=== PATIENT | female | born 1985 | race Caucasian/White ===

== ENCOUNTER 2017-03-07 10:20 | Emergency (ER) | payer BC ==
--- NOTE | 2017-03-07 12:28 | UC ---
Abdominal Pain Female HPI - History of Current Complaint Chief Complaint: UCGI Stated Complaint: ABD PAIN DIARRHEA WT LOSS Time Seen by Provider: 03/07/17 12:27 Hx Last Menstrual Period: 02/04/17 Allergies/Adverse Reactions: Allergies Allergy/AdvReac Type Severity Reaction Status Date / Time No Known Allergies Allergy Verified 03/07/17 11:23 Home Medications: Home Medications Citalopram TAB* [CeleXA TAB*] 30 mg PO DAILY 03/07/17 [History Confirmed ] Multiple Vitamin [Multi Vitamin] 1 tab PO DAILY 03/07/17 [History Confirmed 06/16] PMH/Surg Hx/FS Hx/Imm Hx - Surgical History Surgical History: None - Social History Alcohol Use: Daily Alcohol Amount: 2-3 beers Substance Use Type: Marijuana Substance Use Comment - Amount & Last Used: several times a day Smoking Status (MU): Heavy Every Day Tobacco Smoker Type: Cigarettes Amount Used/How Often: 1 ppd Length of Time of Smoking/Using Tobacco: started at age 16 Have You Smoked in the Last Year: Yes Physical Exam Vital Signs: Initial Vital Signs Temp 98.9 F 03/07/17 11:15 Pulse 88 03/07/17 11:15 Resp 14 03/07/17 11:15 BP 167/103 03/07/17 11:15 Pulse Ox 97 03/07/17 11:15 Discharge - Discharge Plan Additional Instructions: Your blood pressure is elevated. Please contact your primary care provider within 1 day -4 weeks for further evaluation.
[2017-03-07 14:02] VITALS: BP 136/85
--- NOTE | 2017-03-07 14:20 | UC ---
Abdominal Pain Female HPI - HPI Summary HPI Summary: PT C/O 2 MONTHS OF WATERY DIARRHEA AND ABDOMINAL CRAMPING. WORSE IN THE MORNING AND AFTER EATING. HAS 4-5 EPISODES OF WATERY DIARRHEA DAILY FOR AT LEAST THE PAST MONTH. HAS HAD 8 LB UNINTENTIONAL WEIGHT LOSS. NO FEVERS. HAS MILD NAUSEA. SAW HER PCP ABOUT A MONTH AGO AND RESTARTED CITALOPRAM IN CASE SX WERE RELATED TO ANXIETY/DEPRESSION. SX DID NOT IMPROVE. SISTER HAS CROHNS. - History of Current Complaint Chief Complaint: UCGI Stated Complaint: ABD PAIN DIARRHEA WT LOSS Time Seen by Provider: 03/07/17 12:27 Hx Obtained From: Patient Hx Last Menstrual Period: 02/04/17 Onset/Duration: Gradual Onset, Lasting Weeks, Still Present Timing: Constant Severity Initially: Moderate Severity Currently: Moderate Pain Intensity: 3 Pain Scale Used: 0-10 Numeric Location: Diffuse Radiates: No Character: Cramping Aggravating Factor(s): Food Alleviating Factor(s): Nothing Associated Signs and Symptoms: Positive: Nausea, Diarrhea, Other: - WEIGHT LOSS Allergies/Adverse Reactions: Allergies Allergy/AdvReac Type Severity Reaction Status Date / Time No Known Allergies Allergy Verified 03/07/17 11:23 Home Medications: Home Medications Citalopram TAB* [Celexa TAB*] 30 mg PO DAILY 03/07/17 [History Confirmed ] Multiple Vitamin [Multi Vitamin] 1 tab PO DAILY 03/07/17 [History Confirmed 06/16] PMH/Surg Hx/FS Hx/Imm Hx Psychological History Of: Reports: Anxiety, Depression - Surgical History Surgical History: None - Family History Family History: CROHNS - SISTER - Social History Alcohol Use: Daily Alcohol Amount: 2-3 beers Substance Use Type: Marijuana Substance Use Comment - Amount & Last Used: several times a day Smoking Status (MU): Heavy Every Day Tobacco Smoker Type: Cigarettes Amount Used/How Often: 1 ppd Length of Time of Smoking/Using Tobacco: started at age 16 Have You Smoked in the Last Year: Yes Review of Systems Constitutional: Negative Respiratory: Negative Cardiovascular: Negative Gastrointestinal: Abdominal Pain, Diarrhea, Other - NAUSEA All Other Systems Reviewed And Are Negative: Yes Physical Exam Triage Information Reviewed: Yes Appearance: Well-Appearing, No Pain Distress, Well-Nourished Vital Signs: Initial Vital Signs Temp 98.9 F 03/07/17 11:15 Pulse 88 03/07/17 11:15 Resp 14 03/07/17 11:15 BP 167/103 03/07/17 11:15 Pulse Ox 97 03/07/17 11:15 Vital Signs Reviewed: Yes Eyes: Positive: Conjunctiva Clear ENT: Positive: Hearing grossly normal Neck: Positive: Supple Respiratory Exam: Normal Cardiovascular Exam: Normal Abdomen Description: Positive: Nontender, Soft. Negative: CVA Tenderness (R), CVA Tenderness (L), Distended, Guarding Bowel Sounds: Positive: Hyperactive Musculoskeletal: Positive: No Edema Neurological: Positive: Alert Psychological: Positive: Age Appropriate Behavior Skin: Negative: rashes Abd Pain Female Course/Dx - Differential Dx/Diagnosis Provider Diagnoses: ABDOMINAL PAIN/DIARRHEA/WEIGHT LOSS Discharge - Discharge Plan Condition: Stable Disposition: HOME Prescriptions: Ondansetron ODT TAB* [Zofran Odt TAB*] 4 mg PO Q6H PRN #20 tab.odt PRN Reason: Nausea/Vomiting Patient Education Materials: Irritable Bowel Syndrome (ED), Acute Diarrhea (ED) Forms: *Work Release Referrals: Rafy Cooper MD [Primary Care Provider] - If Needed Palomo Vo MD [Medical Doctor] - (OFFICE WILL CALL YOU TO SCHEDULE AN APPT) Additional Instructions: FOLLOW-UP WITH GI FOR FURTHER EVALUATION OF YOUR SYMPTOMS. YOUR INFORMATION HAS BEEN FAXED TO DR. VO' OFFICE AND SOMEONE SHOULD BE CALLING YOU TO SCHEDULE AN APPT. Your blood pressure is elevated. Please contact your primary care provider within 1 day -4 weeks for further evaluation.
== END 2017-03-07 14:30 | disposition home or self-care (01) ==
LOC: UCEAST 10:20
DX: R19.7 Diarrhea, unspecified (principal); R10.9 Unspecified abdominal pain; R63.4 Abnormal weight loss; F41.8 Other specified anxiety disorders
CPT/HCPCS: 99212; G0463

== ENCOUNTER 2017-12-07 03:16 | Emergency (ER) | payer BC ==
[2017-12-07] MEDS ORDERED: NS 0.9% 1000 ML* 1,000 ML IV ONE (04:12)
[2017-12-07] MEDS ORDERED: Ketorolac INJ* 30 MG/ML 1 ML VIAL IV PUSH ONE (04:26)
[2017-12-07 05:00] LABS: Hematocrit 40 % (35-47); Hemoglobin 13.5 g/dl (12.0-16.0); Mean Corpuscular HGB Conc 34 g/dl (31-36); Mean Corpuscular Hemoglobin 32 pg (27-31); Mean Corpuscular Volume 92 fL (80-97); Mean Platelet Volume 8 um3 (7.4-10.4); Platelet Count 375 10^3/ul (150-450); Red Blood Count 4.28 10^6/ul (4.0-5.4); Red Cell Distribution Width 12 % (10.5-15); White Blood Count 21.5 10^3/ul (3.5-10.8)
[2017-12-07 05:02] LABS: ABS Basophils 0.2 10^3/ul (0-0.2); ABS Eosinophils 0.2 10^3/ul (0-0.6); ABS Lymphocytes 0.9 10^3/ul (1.0-4.8); ABS Monocytes 1.8 10^3/ul (0-0.8); ABS Neutrophils 18.4 10^3/ul (1.5-7.7); ABS Nucleated RBC 0 10^3/ul; Eosinophil % 0.8 % (0-6); Lymphocyte % 4.1 % (25-47); Nucleated Red Blood Cells % 0
[2017-12-07 05:11] LABS: EGFR Non-African American 118.9 (>60)
--- NOTE | 2017-12-07 06:42 | ED ---
Patel Oliver Abhishek, scribed for Shefali Wooten MD on 12/07/17 at 0437 . Complex/Multi-Sys Presentation - HPI Summary HPI Summary: This patient is a 32 year old F [place] [facility] [place] and father with a c/o of lower abd pain since . Pt reports vomiting started in Friday, but generalized weakness since . Pt reports loss of 10 pounds since onset of symptoms. The patient rates the pain 7/10 in severity. Symptoms aggravated by nothing. Symptoms alleviated by nothing. Patient reports weakness, diarrhea and BERMEO. Patient denies double vision, blurry vision, neck pain, chest pain, SOB, burning, hematuria, bruises, rashes, SI, HI , anxiety, depression. Pertinent PMHx includes Crohns disease. - History Of Current Complaint Chief Complaint: EDAbdPain Time Seen by Provider: 12/07/17 03:41 Hx Obtained From: Patient, Family/Work Order Detailer Onset/Duration: Gradual Onset, Lasting Weeks - since , Still Present , Worse Since - This Friday Timing: Constant Location: Pain At: - lower abd Aggravating Factor(s): nothing Alleviating Factor(s): nothing Associated Signs And Symptoms: Positive: Weakness, Other - BERMEO. Negative blurry vision, double vision, neck pain, burning sensation when urinating, hematuria, brusies, rahses, SI, HI, anxiety, and depression.. Negative: SOB, Chest Pain - Allergies/Home Medications Allergies/Adverse Reactions: Allergies Allergy/AdvReac Type Severity Reaction Status Date / Time No Known Allergies Allergy Verified 12/07/17 03:56 Home Medications: Home Medications Flagyl 500 MG TAB 500 mg PO TID 12/07/17 [History Confirmed 12/07/17] Hyoscyamine TAB* 0.125 mg PO Q4HR PRN 12/07/17 [History Confirmed 12/07/17] LORazepam TAB(*) 0.5 mg PO Q4HR PRN 12/07/17 [History Confirmed 12/07/17] PMH/Surg Hx/FS Hx/Imm Hx Endocrine/Hematology History: Denies: Hx Diabetes Cardiovascular History: Denies: Hx Hypertension History: Denies: Hx Renal Disease Psychiatric History: Reports: Hx Anxiety, Hx Depression - Immunization History Date of Influenza Vaccine: has not yet received Infectious Disease History: No Infectious Disease History: Denies: Traveled Outside the [place] in Last 30 Days - Family History Known Family History: Positive: Other - Negative colon Cancer. Family History: CROHNS - SISTER - Social History Alcohol Use: None Alcohol Amount: 2-3 beers Hx Substance Use: Yes Substance Use Type: Reports: Marijuana Substance Use Comment - Amount & Last Used: several times a day Smoking Status (MU): Heavy Every Day Tobacco Smoker Type: Cigarettes Amount Used/How Often: 1 ppd Length of Time of Smoking/Using Tobacco: started at age 16 Have You Smoked in the Last Year: Yes Review of Systems Positive: Fever Eyes: Other - Negative double vision Negative: Blurred Vision ENT: Negative Negative: Chest Pain Negative: Shortness Of Breath Gastrointestinal: Negative Negative: burning, hematuria Musculoskeletal: Other - Negative neck pain Negative: Rash, Bruising Positive: Headache, Weakness Psychological: Other - Negative SI, HI Negative: Anxious, Depressed All Other Systems Reviewed And Are Negative: No Physical Exam - Summary Physical Exam Summary: Appearance: Alert, conversive, nontoxic appearing, Thin frail Skin: Warm, dry, no mottling, no rashes, no contusions HEENT: EOMI, PERRL, Dry mucosa membranes Neck: No masses on the neck, supple Respiratory: Clear to auscultation, breath sounds present, no rales, no rhonchi , no wheezes Cardiovascular: RRR, pulses are symmetrical in both lower and upper extremities Abdomen:Mild diffuse abd pain Bowel Sounds: Present Musculoskeletal: No CVA tenderness, no obvious deformity, moving all extremities in a grossly normal manner Neurological: A&Ox3, CN II-XII Intact, moving all extremities symmetrically Psychiatric: Normal affect and mood Triage Information Reviewed: Yes Vital Signs On Initial Exam: Initial Vitals Temp Pulse Resp BP Pulse Ox 98 F 104 18 122/105 99 12/07/17 03:22 12/07/17 03:22 12/07/17 03:22 12/07/17 03:22 12/07/17 03:22 Vital Signs Reviewed: Yes Diagnostics - Vital Signs Vital Signs Temp Pulse Resp BP Pulse Ox 12/07/17 04:01 69 96 12/07/17 04:00 117/69 12/07/17 03:22 98 F 104 18 122/105 99 - Laboratory Result Diagrams: 12/07/17 04:40 12/07/17 04:40 Lab Statement: Any lab studies that have been ordered have been reviewed, and results considered in the medical decision making process. Complex Multi-Symp Course/Dx Course Of Treatment: This patient is a 32 year old F presenting to [facility] accompanied by mother and father with a c/o of lower abd pain since thanks. Pt reports vomiting started in Friday, but generalized weakness since . Pt reports loss of 10 pounds since onset of symptoms. Dx will be colitis. the pt will be signed out Dr. Bustos pending disposition and repeat labs. - Diagnoses Provider Diagnoses: Colitis Discharge - Discharge Plan Condition: Stable Disposition: OTHER Discharge Disposition Comment: Pt will be signed out to Dr. Bustos pending disposition and repeat labs Referrals: Vivi Jones NP [Primary Care Provider] - The documentation as recorded by the Patel forde Abhishek accurately reflects the service I personally performed and the decisions made by , Shefali Wooten MD.
[2017-12-07] MEDS ORDERED: Iohexol 300* (CONTRAST) 10 ML SDV IV ONE (06:45)
[2017-12-07] MEDS ORDERED: Ondansetron TAB* 4 MG PO ONE (08:37)
[2017-12-07] MEDS ORDERED: Ciprofloxacin TAB* 500 MG PO ONE (08:38)
--- NOTE | 2017-12-07 08:41 | ED ---
Mitchell Oliver Natalie, scribed for Dom Bustos MD on 12/07/17 at 0835 . Progress - Progress Note Progress Note: pt feels better here after ED course, already started on flagyl from pmd, I added cipro to regimen and recommended fu with GI physician. CT shows evidence of minimally improved colitis. WBC elevated, Vitals stable, appears well and tolerating PO. Pt and family agree to and understnad dc instructions. - EKG/XRAY/CT CT: colitis minimally improved. no abscess or masses or obstructions. Re-Evaluation - Re-Evaluation First Eval Re-Evaluation Time: 08:32 Course/Dx - Course Course Of Treatment: This patient is a 32 year old F presenting to [facility] accompanied by mother and father with a c/o of lower abd pain since thanks. Pt reports vomiting started in Friday, but generalized weakness since . Pt reports loss of 10 pounds since onset of symptoms. Dx will be colitis. the pt will be signed out Dr. Bustos pending disposition and repeat labs. - Diagnoses Provider Diagnoses: Colitis The documentation as recorded by the Mitchell forde Natalie accurately reflects the service I personally performed and the decisions made by me, Dom Bustos MD.
--- NOTE | 2017-12-07 08:44 | RAD ---
INDICATION: Abdominal pain and history of colitis. COMPARISON: Comparison is made with a prior CT of the abdomen and pelvis from December 08, 2017. TECHNIQUE: A CT scan of the abdomen and pelvis was performed with intravenous and without oral contrast following intravenous injection of 65 ml of Omnipaque 300 nonionic contrast. Contiguous axial sections were obtained from the lung bases through the symphysis pubis. Images were reconstructed in the coronal and sagittal planes. FINDINGS: The lung bases are clear. No pleural effusion is present. The liver and spleen are within normal limits in size without significant focal abnormality. No calcified gallstones are seen. The pancreas appears to be within normal limits in size. The kidneys and adrenal glands are normal in size. No hydronephrosis is seen. No significant focal renal abnormality is seen. The aorta is normal in caliber and demonstrates homogeneous contrast opacification. No significant enlarged retroperitoneal lymph nodes are seen. The stomach, small and large bowel appear nondistended. The appendix is not visualized. There is diffuse circumferential thickening of the wall of the colon from the cecum to the mid sigmoid colon. The degree of wall thickening has improved slightly from the prior study. The uterus is anteverted and normal in size. There is a small amount of free intraperitoneal fluid in the cul-de-sac. No free intraperitoneal air is seen. No abscess is seen. No significant focal osseous abnormality is seen. IMPRESSION: 1. DIFFUSE THICKENING OF THE COLON CONSISTENT WITH COLITIS WITH SLIGHT IMPROVEMENT FROM THE PRIOR STUDY. 2. SMALL AMOUNT OF FREE INTRAPERITONEAL FLUID, NO ABSCESS IS SEEN.
[2017-12-07 09:33] VITALS: BP 115/64
== END 2017-12-07 09:27 | disposition home or self-care (01) ==
LOC: ED 03:16
DX: K52.9 Noninfective gastroenteritis and colitis, unspecified (principal); R10.30 Lower abdominal pain, unspecified; R53.1 Weakness; R50.9 Fever, unspecified; F17.210 Nicotine dependence, cigarettes, uncomplicated; R51 Headache
CPT/HCPCS: 36415; 74177; 80053; 83605; 83735; 84443; 85025; 87040; 96361; 96374; 96375; 99283; A9270-GY; J1885; Q9967

== ENCOUNTER 2018-11-01 17:03 | Inpatient (IN) | payer BC, MEDICAID ==
[2018-11-01] MEDS ORDERED: NS 0.9% 1000 ML* 1,000 ML IV ONE ×2 (18:33→19:08)
[2018-11-01] MEDS ORDERED: Ondansetron INJ* 2 MG/ML VIAL IV ONE (18:33)
[2018-11-01] MEDS ORDERED: Morphine VIAL* 10 MG/ML 1 ML VIAL IV ONE ×2 (19:08→21:02)
[2018-11-01 19:18] LABS: Hematocrit 39 % (35-47); Mean Corpuscular HGB Conc 33 g/dl (31-36); Mean Corpuscular Hemoglobin 31 pg (27-31); Mean Corpuscular Volume 92 fL (80-97); Mean Platelet Volume 7.6 fL (7.4-10.4); Platelet Count 345 10^3/ul (150-450); Red Blood Count 4.21 10^6/ul (4.00-5.40); Red Cell Distribution Width 12 % (10.5-15); White Blood Count 24.3 10^3/ul (3.5-10.8)
[2018-11-01] MEDS ORDERED: Morphine VIAL* 4 MG/ML VIAL (1 ml vial) ONE (19:23)
[2018-11-01] MEDS ORDERED: Dicyclomine CAP* 10 MG PO ONE (19:32)
[2018-11-01 19:36] LABS: EGFR Non-African American 111.6 (>60)
[2018-11-01 20:47] LABS: ABS Basophils 0 10^3/ul (0-0.2); ABS Eosinophils 0 10^3/ul (0-0.6); ABS Lymphocytes 0.9 10^3/ul (1.0-4.8); ABS Monocytes 2.4 10^3/ul (0-0.8); ABS Neutrophils 20.9 10^3/ul (1.5-7.7); ABS Nucleated RBC 0 10^3/ul; Eosinophil % 0.2 %; Lymphocyte % 3.7 %; Nucleated Red Blood Cells % 0
[2018-11-01] MEDS ORDERED: predniSONE TAB* 20 MG PO ONE (20:47)
[2018-11-01] MEDS ORDERED: Metoclopramide IV* 5 MG/ML 2 ML VIAL IV ONE (21:02)
[2018-11-01] MEDS ORDERED: Ciprofloxacin TAB* 500 MG PO ONE (21:02)
[2018-11-01] MEDS ORDERED: Potassium Chlor TAB* 20 MEQ TAB.ER PO ONE (21:06)
--- NOTE | 2018-11-01 21:07 | ED ---
Abdominal Pain/Female - HPI Summary HPI Summary: Patient complains of bilateral lower abdominal pain, diarrhea with mucus, nausea or vomiting 2 weeks. Abdominal pain described as constant with spikes of pain. Patient states she is unable to eat, but has managed fluids until today. States increase of pain today. Patient saw GI 5 days ago, states stool cultures were negative, started on Lialda. Patient states history of same back in December when she was diagnosed with Crohn's disease. Denies fever, eye pain , rash, cough, sore throat, CP, SOB, change in urine, vaginal symptoms, . Ankle history is Crohn's disease. Abdominal surgical history is none. - History of Current Complaint Chief Complaint: EDAbdPain Stated Complaint: ABD PAIN Time Seen by Provider: 11/01/18 18:31 Hx Obtained From: Patient, Family/Apartment Maintenance Hx Last Menstrual Period: 02/04/17 Onset/Duration: Gradual Onset Timing: Constant Severity Initially: Severe Severity Currently: Severe Pain Intensity: 10 Pain Scale Used: 0-10 Numeric Location: Discrete At: RLQ, Discrete At: LLQ, Suprapubic Radiates: No Character: Sharp, Cramping Aggravating Factor(s): Food Alleviating Factor(s): Nothing Associated Signs and Symptoms: Positive: Decreased Appetite, Nausea, Diarrhea Allergies/Adverse Reactions: Allergies Allergy/AdvReac Type Severity Reaction Status Date / Time No Known Allergies Allergy Verified 11/01/18 17:09 Home Medications: Home Medications Mesalamine 1.2 g PO DAILY 11/01/18 [History Confirmed 11/01/18] buPROPion HCl [Bupropion HCl Xl] 150 mg PO DAILY 11/01/18 [History Confirmed 01/18] PMH/Surg Hx/FS Hx/Imm Hx Endocrine/Hematology History: Denies: Hx Diabetes Cardiovascular History: Denies: Hx Cardiac Arrest, Hx Hypertension History: Denies: Hx Dialysis, Hx Renal Disease Psychiatric History: Reports: Hx Anxiety, Hx Depression - Immunization History Date of Influenza Vaccine: has not yet received Infectious Disease History: No Infectious Disease History: Denies: Traveled Outside the [place] in Last 30 Days - Family History Known Family History: Positive: Other - Negative colon Cancer. Family History: CROHNS - SISTER - Social History Alcohol Use: Daily Alcohol Amount: 4-5 beers /day Hx Substance Use: Yes Substance Use Type: Reports: Marijuana Substance Use Comment - Amount & Last Used: several times a day Smoking Status (MU): Heavy Every Day Tobacco Smoker Type: Cigarettes Amount Used/How Often: 1 ppd Length of Time of Smoking/Using Tobacco: started at age 16 Have You Smoked in the Last Year: Yes Review of Systems Constitutional: Negative Eyes: Negative ENT: Negative Cardiovascular: Negative Respiratory: Negative Positive: Abdominal Pain, Diarrhea, Nausea Genitourinary: Negative Musculoskeletal: Negative Skin: Negative Neurological: Negative Psychological: Normal All Other Systems Reviewed And Are Negative: Yes Physical Exam - Summary Physical Exam Summary: Abdomen tender diffusely to palpation Triage Information Reviewed: Yes Vital Signs On Initial Exam: Initial Vitals Temp Pulse Resp BP Pulse Ox 99.7 F 95 18 120/85 96 11/01/18 17:09 11/01/18 17:09 11/01/18 17:09 11/01/18 17:09 11/01/18 17:09 Vital Signs Reviewed: Yes Appearance: Positive: Well-Appearing Skin: Positive: Warm Head/Face: Positive: Normal Head/Face Inspection Eyes: Positive: Normal Neck: Positive: Supple Respiratory/Lung Sounds: Positive: Clear to Auscultation Cardiovascular: Positive: Normal Musculoskeletal: Positive: Normal Neurological: Positive: Normal Psychiatric: Positive: Normal AVPU Assessment: Alert - Herber Coma Scale Best Eye Response: 4 - Spontaneous Best Motor Response: 6 - Obeys Commands Best Verbal Response: 5 - Oriented Coma Scale Total: 15 Diagnostics - Vital Signs Vital Signs Temp Pulse Resp BP Pulse Ox 11/01/18 20:00 84 98 11/01/18 19:26 18 11/01/18 19:22 82 121/67 99 11/01/18 19:07 87 115/86 97 11/01/18 19:04 91 123/75 86 11/01/18 19:03 92 120/74 100 11/01/18 19:02 85 118/74 96 11/01/18 19:00 87 100 11/01/18 18:52 64 120/66 98 11/01/18 18:22 77 143/79 95 11/01/18 18:21 93 98 11/01/18 17:09 99.7 F 95 18 120/85 96 - Laboratory Lab Results: Lab Results 11/01/18 11/01/18 11/01/18 Range/Units 19:06 19:06 19:10 WBC 24.3 H (3.5-10.8) 10^3/ul RBC 4.21 (4.00-5.40) 10^6/ul Hgb 13.0 (12.0-16.0) g/dl Hct 39 (35-47) % MCV 92 (80-97) fL MCH 31 (27-31) pg MCHC 33 (31-36) g/dl RDW 12 (10.5-15) % Plt Count 345 (150-450) 10^3/ul MPV 7.6 (7.4-10.4) fL Neut % (Auto) 85.9 % Lymph % (Auto) 3.7 % [place] % (Auto) 10.1 % Eos % (Auto) 0.2 % Baso % (Auto) 0.1 % Absolute Neuts (auto) 20.9 H (1.5-7.7) 10^3/ul Absolute Lymphs (auto) 0.9 L (1.0-4.8) 10^3/ul Absolute Monos (auto) 2.4 H (0-0.8) 10^3/ul Absolute Eos (auto) 0 (0-0.6) 10^3/ul Absolute Basos (auto) 0 (0-0.2) 10^3/ul Absolute Nucleated RBC 0 10^3/ul Nucleated RBC % 0 Sodium 136 (135-145) mmol/L Potassium 3.2 L (3.5-5.0) mmol/L Chloride 104 (101-111) mmol/L Carbon Dioxide 23 (22-32) mmol/L Anion Gap 9 (2-11) mmol/L BUN 6 (6-24) mg/dL Creatinine 0.62 (0.51-0.95) mg/dL Est GFR ( Amer) 135.0 (>60) Est GFR (Non-Af Amer) 111.6 (>60) BUN/Creatinine Ratio 9.7 (8-20) Glucose 97 (70-100) mg/dL Lactic Acid 0.9 (0.5-2.0) mmol/L Calcium 8.8 (8.6-10.3) mg/dL Total Bilirubin 0.40 (0.2-1.0) mg/dL AST 10 L (13-39) U/L ALT 7 (7-52) U/L Alkaline Phosphatase 103 (34-104) U/L C-Reactive Protein 186.96 H (<8.01) mg/L Total Protein 6.6 (6.4-8.9) g/dL Albumin 3.3 (3.2-5.2) g/dL Globulin 3.3 (2-4) g/dL Albumin/Globulin Ratio 1.0 (1-3) Lipase < 10 L (11.0-82.0) U/L Beta HCG, Quant < 0.60 mIU/mL Result Diagrams: 11/01/18 19:06 11/01/18 19:06 Lab Statement: Any lab studies that have been ordered have been reviewed, and results considered in the medical decision making process. Abdominal Pain Fem Course/Dx - Course Course Of Treatment: Patient complains of bilateral lower abdominal pain, diarrhea with mucus, nausea or vomiting 2 weeks. Abdominal pain described as constant with spikes of pain. Patient states she is unable to eat, but has managed fluids until today. States increase of pain today. Patient saw GI 5 days ago, states stool cultures were negative for infectious process, started on Lialda. Patient states history of same back in December when she was diagnosed with Crohn's disease. Denies fever, eye pain, rash, cough, sore throat, CP, SOB, change in urine, vaginal symptoms, . Ankle history is Crohn's disease. Abdominal surgical history is none. Physical exam:Abdomen tender diffusely to palpation. Vital signs normal and stable. White count of 24. CRP of 184. Lactic within normal range. Pain control with morphine. Nausea controlled with Reglan. CT abdomen and pelvis positive for pancolitis and mesenteric adenopathy.. Patient admitted to hospitalist - Diagnoses Provider Diagnoses: Abdominal pain Discharge - Sign-Out/Discharge Documenting (check all that apply): Patient Departure - Discharge Plan Condition: Stable Disposition: HOME Prescriptions: Ciprofloxacin HCl [Cipro] 500 mg PO BID 10 Days #20 tablet Dicyclomine CAP* [Bentyl CAP*] 20 mg PO TID PRN 10 Days #60 cap PRN Reason: Pain Patient Education Materials: Crohn Disease (ED) Referrals: Vivi Jones NP [Primary Care Provider] - Additional Instructions: Follow-up with your GI doctor. Return to the ED for any new or worsening symptoms - Billing Disposition and Condition Condition: STABLE Disposition: Home
[2018-11-01] MEDS ORDERED: methylPREDNISolone 125 MG* 2 ML VIAL IV ONE (21:59)
[2018-11-01] MEDS ORDERED: methylPREDNISolone 125 MG* 2 ML VIAL ONE (22:00)
[2018-11-01] MEDS ORDERED: Iohexol 300* (CONTRAST) 10 ML SDV IV ONE (22:48)
[2018-11-02] MEDS ORDERED: methylPREDNISolone SOD 40 MG* 1 ML VIAL IV SCH (03:00)
[2018-11-02] MEDS: Ondansetron INJ* 2 MG/ML VIAL IV PRN ×2 (03:52→20:22)
[2018-11-02] MEDS: NS 0.9% 1000 ML* 1,000 ML IV SCH ×2 (03:52→19:16)
[2018-11-02] MEDS ORDERED: Potassium Chlor TAB* 20 MEQ TAB.ER PO ONE (04:15)
--- NOTE | 2018-11-02 05:18 | HP ---
CC: Vivi Jones NP; Dr. Gutierrez.* HISTORY AND PHYSICAL: DATE OF ADMISSION: 11/02/18 PRIMARY CARE PROVIDER: Vivi Jones NP. QUALITY ASSURANCE GROUP LEADER: Dr. Gutierrez. CHIEF COMPLAINT: Abdominal pain and diarrhea. HISTORY OF PRESENT ILLNESS: Ms. Aaron is a 33-year-old female who was diagnosed with Crohn's disease in December 2017 and had not been on any maintenance therapy until approximately a [id number]-half ago when she started having abdominal pain markedly decreased appetite nausea, vomiting and diarrhea. The patient states that she has lost 6 pounds in the last one-and- half weeks. She has not really been able to keep anything in by mouth, liquid or solids. On 10/27/18, she was seen by the nurse practitioner in Dr. Gutierrez's office and was started on mesalamine. Stool sample was left to rule out infection prior to initiating prednisone. The states that she was informed just recently that her stool sample was negative for infection. She was supposed to be seen on 11/02/18 in followup in GI office, but states that she cannot wait because the weekend was incredibly difficult in terms of pain and diarrhea. She states that she has been having 10 to 20 diarrheal stools per day. She admits to chills, but no fever. PAST MEDICAL HISTORY: 1. Crohn's disease. 2. Depression/anxiety. PAST SURGICAL HISTORY: None. MEDICATIONS: 1. Mesalamine 1.2 g p.o. daily. 2. Bupropion XL 150 mg p.o. daily. 3. Celexa 20 mg p.o. daily. 4. Zofran 4 mg p.o. q.6 hours p.r.n. nausea. 5. Lorazepam 0.5 mg p.o. q.4 hours p.r.n. anxiety. ALLERGIES: None. FAMILY HISTORY: Mom is living. She was recently diagnosed with diabetes. Dad is living. He has COPD. The patient has a sister with Crohn's disease. SOCIAL HISTORY: The patient smokes 1 pack per day. She also drinks 4 to 5 beers nightly. She works as an administrative assistance. She is . She has no children. REVIEW OF SYSTEMS: A complete 11-system review of systems is obtained. Pertinent positives and negatives are as per HPI and in addition the patient does complain of generalized weakness and being wiped out. PHYSICAL EXAMINATION GENERAL: The patient is a well-developed thin young female sitting up in the stretcher, in no acute distress. VITAL SIGNS: Blood pressure is 113/71, pulse 55, respirations 16, temp 99.7, and O2 sat 95% on room air. HEENT: Pupils are equal and round. Extraocular muscles are intact. Oropharynx is clear. Oral mucosa is moist. There is no submandibular, cervical , or supraclavicular adenopathy. Thyroid is not enlarged. No thyroid nodules are noted. PULMONARY: Lungs are clear to auscultation bilaterally. CARDIAC: Normal S1, S2. Regular rate and rhythm. I do not appreciate any murmurs. There is no lower extremity edema. ABDOMEN: Bowel sounds are present. Abdomen is soft, nondistended, mildly tender to palpation. MUSCULOSKELETAL: There is no cyanosis or clubbing of the digits. There is full active range of motion of all 4 extremities. SKIN: Warm and dry. There are no rashes. NEURO: Cranial nerves II through XII appeared to be grossly intact. Sensation is intact to light touch throughout. Strength is 5/5 and symmetric in upper and lower extremities bilaterally. PSYCH: The patient is alert. She is oriented x3. Affect appears appropriate. DIAGNOSTIC STUDIES AND LABORATORY DATA: WBC 24.3, hemoglobin 13.0, hematocrit 39, platelets 345. Sodium 136, potassium 3.2, chloride 104, CO2 of 23, BUN 6 and creatinine 0.62, glucose 97. Lactic acid 0.9. Calcium 8.8. Bilirubin 0.4 , AST 10, ALT 7, alk phos 103. CRP 186.96. Albumin 3.3. Lipase less than 10. CT of abdomen and pelvis, mild pancolitis, which is similar to the prior study of 12/07/17. Mild right lower quadrant mesenteric adenopathy, which is similar to the prior study and is likely reactive. Otherwise, negative CT of abdomen and pelvis. ASSESSMENT AND PLAN: Ms. Aaron is a 33-year-old female with a known history of Crohn's disease, was not on maintenance therapy until past Friday, when she began mesalamine for a Crohn's flare. 1. Crohn's flare. At this point, the patient continues to complain of abdominal pain and significant diarrhea. The patient will be admitted under observation status for IV steroids and IV fluid. The patient states that she is now able to drink liquids better than she did when she initially presented to the emergency room, which was several hours ago. She has not really tried to eat anything solid. I will start clear liquid diet and this can be advanced as tolerated. GI consultation will be requested for further management options. The patient will be started on Solu-Medrol IV q.8 hours for now. I will also continue her mesalamine. 2. Leukocytosis. This is secondary to the Crohn's flare. We will monitor intermittently. 3. DVT prophylaxis. According to the Adult Thrombosis Prophylaxis Risk Factor Assessment Guide, the patient has a total risk factor score of 0, making her low risk. Ambulation will be utilized as DVT prophylaxis. 5. Code status is full. TIME SPENT: Fifty minutes was spent admitting this patient. [id number]/[facility] #: [id number] JASPAL
[2018-11-02] MEDS: methylPREDNISolone SOD 40 MG* 1 ML VIAL IV SCH ×3 (05:36→22:05)
[2018-11-02 07:49] LABS: Urine Appearance Cloudy; Urine Blood 1+ (Negative); Urine Color Yellow; Urine Ketones 2+ (Negative); Urine Protein Negative (Negative); Urine Red Blood Cell 1+(3-5/hpf) (Absent); Urine Specific Gravity 1.025 (1.010-1.030); Urine Urobilinogen Negative (Negative); Urine White Blood Cell Trace(0-5/hpf) (Absent)
[2018-11-02] MEDS: PROCHLORPERAZINE INJ 5 MG/ML 2 ML VIAL IV PRN (07:58)
[2018-11-02] MEDS: Morphine VIAL* 4 MG/ML VIAL (1 ml vial) IV PRN ×3 (08:03→20:22)
[2018-11-02] MEDS: Citalopram TAB* 20 MG PO SCH (09:31)
[2018-11-02] MEDS: BuPROPion XL* 150 MG TAB.XL PO SCH (09:31)
--- NOTE | 2018-11-02 17:22 | PN ---
Subjective Date of Service: 11/02/18 Interval History: Patient seen and examined. No acute complaints, describes abdomen as sore, still with diarrhea, mucous but no blood. Denies fever or chills, no SOB. Objective Active Medications: Bupropion HCl (Wellbutrin Xl *) 150 mg PO DAILY [facility]; Protocol Last Admin: 11/02/18 09:31 Dose: 150 mg Citalopram Hydrobromide (Celexa Tab*) 20 mg PO DAILY [facility] Last Admin: 11/02/18 09:31 Dose: 20 mg Sodium Chloride (Ns 0.9% 1000 Ml*) 1,000 mls @ 100 mls/hr IV PER RATE [facility] Last Admin: 11/02/18 03:52 Dose: 100 mls/hr Lorazepam (Ativan Tab(*)) 0.5 mg PO Q6HR PRN PRN Reason: ANXIETY Mesalamine (Mesalamine Dr Cap*) 1,200 mg PO DAILY [facility] Last Admin: 11/02/18 09:31 Dose: Not Given Methylprednisolone Sodium Succinate (Solu-Medrol 40 Mg) 20 mg IV Q8H [facility] Last Admin: 11/02/18 12:59 Dose: 20 mg Morphine Sulfate (Morphine Vial*) 4 mg IV Q4H PRN PRN Reason: PAIN - MILD Last Admin: 11/02/18 12:59 Dose: 4 mg Ondansetron HCl (Zofran Inj*) 4 mg IV Q6H PRN PRN Reason: NAUSEA Last Admin: 11/02/18 03:52 Dose: 4 mg Prochlorperazine Edisylate (Compazine Inj*) 10 mg IV Q6H PRN PRN Reason: NAUSEA/VOMITING Last Admin: 11/02/18 07:58 Dose: 10 mg Vital Signs - 8 hr 11/02/18 11/02/18 11/02/18 09:32 11:14 12:59 Temperature 97.7 F Pulse Rate 57 Respiratory 18 16 18 Rate Blood Pressure 113/56 (mmHg) O2 Sat by Pulse 97 Oximetry 11/02/18 11/02/18 13:55 15:44 Temperature 97.8 F Pulse Rate 55 Respiratory 18 16 Rate Blood Pressure 91/66 (mmHg) O2 Sat by Pulse 98 Oximetry Oxygen Devices in Use Now: None Appearance: alert, thin, NAD Eyes: No Scleral Icterus, PERRLA Ears/Nose/Mouth/Throat: NL Teeth, Lips, Gums, Mucous Membranes Moist Neck: NL Appearance and Movements; NL JVP, Trachea Midline Respiratory: Symmetrical Chest Expansion and Respiratory Effort, Clear to Auscultation Cardiovascular: NL Sounds; No Murmurs; No JVD, RRR, No Edema Abdominal: No Hepatosplenomegaly, - - diffuse tenderness Extremities: No Edema, No Clubbing, Cyanosis Skin: No Rash or Ulcers, No Nodules or Sclerosis Neurological: Alert and Oriented x 3, NL Muscle Strength and Tone Nutrition: - - tolerating CLD Result Diagrams: 11/01/18 19:06 11/01/18 19:06 Additional Lab and Data: Lab Results 11/01/18 11/01/18 11/01/18 Range/Units 19:06 19:06 19:10 WBC 24.3 H (3.5-10.8) 10^3/ul RBC 4.21 (4.00-5.40) 10^6/ul Hgb 13.0 (12.0-16.0) g/dl Hct 39 (35-47) % MCV 92 (80-97) fL MCH 31 (27-31) pg MCHC 33 (31-36) g/dl RDW 12 (10.5-15) % Plt Count 345 (150-450) 10^3/ul MPV 7.6 (7.4-10.4) fL Neut % (Auto) 85.9 % Lymph % (Auto) 3.7 % [place] % (Auto) 10.1 % Eos % (Auto) 0.2 % Baso % (Auto) 0.1 % Absolute Neuts (auto) 20.9 H (1.5-7.7) 10^3/ul Absolute Lymphs (auto) 0.9 L (1.0-4.8) 10^3/ul Absolute Monos (auto) 2.4 H (0-0.8) 10^3/ul Absolute Eos (auto) 0 (0-0.6) 10^3/ul Absolute Basos (auto) 0 (0-0.2) 10^3/ul Absolute Nucleated RBC 0 10^3/ul Nucleated RBC % 0 Sodium 136 (135-145) mmol/L Potassium 3.2 L (3.5-5.0) mmol/L Chloride 104 (101-111) mmol/L Carbon Dioxide 23 (22-32) mmol/L Anion Gap 9 (2-11) mmol/L BUN 6 (6-24) mg/dL Creatinine 0.62 (0.51-0.95) mg/dL Est GFR ( Amer) 135.0 (>60) Est GFR (Non-Af Amer) 111.6 (>60) BUN/Creatinine Ratio 9.7 (8-20) Glucose 97 (70-100) mg/dL Lactic Acid 0.9 (0.5-2.0) mmol/L Calcium 8.8 (8.6-10.3) mg/dL Total Bilirubin 0.40 (0.2-1.0) mg/dL AST 10 L (13-39) U/L ALT 7 (7-52) U/L Alkaline Phosphatase 103 (34-104) U/L C-Reactive Protein 186.96 H (<8.01) mg/L Total Protein 6.6 (6.4-8.9) g/dL Albumin 3.3 (3.2-5.2) g/dL Globulin 3.3 (2-4) g/dL Albumin/Globulin Ratio 1.0 (1-3) Lipase < 10 L (11.0-82.0) U/L Beta HCG, Quant < 0.60 mIU/mL Microbiology and Other Data: Microbiology 11/02/18 16:35 Stool Gross Appearance - Final Stool Diagnostic Imaging: Patient Name: VEE NO Medical Record#: [id number] Ordering Physician: Chase TORRES Acct.#: [id number] : 1985 Age: 33 Sex: F Location: EMERGENCY DEPARTMENT Exam Date: 11/01/182236 ADM Status: REG ER Order Information: CT ABD/PEL W Accession Number: [id number] CPT: 23567 EXAM: CT Abdomen and Pelvis With Intravenous Contrast EXAM DATE/TIME: 11/01/2018 11:00 PM CLINICAL HISTORY: 33 years old, female; Signs and symptoms; Other: Ab pain, HX of crohns TECHNIQUE: Axial computed tomography images of the abdomen and pelvis with intravenous contrast. All CT scans at this facility use at least one of these dose optimization techniques: automated exposure control; mA and/or kV adjustment per patient size (includes targeted exams where dose is matched to clinical indication); or iterative reconstruction. Coronal and sagittal reformatted images were created and reviewed. CONTRAST: 68 ml of [id number] administered intravenously. COMPARISON: A/P W CT ABD/PEL W 12/07/2017 6:41 AM FINDINGS: Lower thorax: No acute findings. ABDOMEN: Liver: Normal. No mass. Gallbladder and bile ducts: Normal. No calcified stones. No ductal dilation. Pancreas: Normal. No ductal dilation. Spleen: Normal. No splenomegaly. Adrenals: Normal. No mass. Kidneys and ureters: Partial duplication of the left renal collecting system. Stomach and bowel: Wall thickening of the colon from the cecum to the rectum. Appendix: Question of visualization of the appendix measuring 9 mm but is similar to the prior study. PELVIS: Bladder: Unremarkable as visualized. Reproductive: Unremarkable as visualized. ABDOMEN and PELVIS: Intraperitoneal space: Normal. No free air. No significant fluid collection. Bones/joints: No acute fracture. No dislocation. Soft tissues: Unremarkable. Vasculature: Normal. No abdominal aortic aneurysm. Lymph nodes: Mild right lower quadrant mesenteric adenopathy. IMPRESSION: 1. Mild pancolitis which is similar to the prior study of 12/07/2017. 2. Mild right lower quadrant mesenteric adenopathy which is similar to the prior study and is likely reactive 3. Otherwise negative CT abdomen/pelvis. To contact [facility] with a general question: [facility] - [phone] For direct physician to physician contact: Physician Hotline - [phone] [facility] ([facility] Facility ID #[id number]) Assess/Plan/Problems-Billing Assessment: This is a 33 year old female with history of diagnosis of Crohn's in December of this year that has been in a flare since , presents with abdominal pain, diarrhea and dehydration. - Patient Problems (1) Crohn's disease, acute Code(s): K50.90 - CROHN'S DISEASE, UNSPECIFIED, WITHOUT COMPLICATIONS SNOMED Code(s): 36537543 Comment: - Which diarrhea, leukocytosis and dehydration - Per patient, was started on a biologic, but has not been taking since flare started (unable to take large pills causing nausea) - Her GI recommended prednisone which will be continued - IVF, CLD - Follow stool cultures - Empiric atbx coverage - Continue mesalamine and bentyl (2) Dehydration Code(s): E86.0 - DEHYDRATION SNOMED Code(s): 82137472 Comment: - Continue IVNS - Monitor lytes in AM (3) DVT prophylaxis Code(s): HEY8103 - SNOMED Code(s): 422373051 Comment: - Ambulation (4) Full code status Current Visit: Yes Status: Acute Code(s): Z78.9 - OTHER SPECIFIED HEALTH STATUS SNOMED Code(s): 380178667 Status and Disposition: Inpatient for IVF and antibiotics and steroids. If no improvement tomorrow, will consult GI.
--- NOTE | 2018-11-02 21:12 | CONS ---
CC: Dr. Cooper; Dr. Heaton at [facility] * CONSULTATION REPORT: DATE OF CONSULT: 11/02/18 REQUESTING PHYSICIAN: Dr. Ann. INDICATION: Crohn's flare. PRIMARY CARE PHYSICIAN: Dr. Cooper. NEW COPYRIGHT MANAGER: Dr. Heaton at [facility]. NARRATIVE: Mrs. Aaron is a very pleasant 33-year-old female who was diagnosed with Crohn's in December of this year. She states that in 2016, she was having diarrhea and by October 2017, it became severe. She was having bloody diarrhea and pain at that point. She was referred to [place] to see Dr. Gutierrez at that time. She had requested a female peer educator. She underwent a colonoscopy; however, she does not know the extent of her Crohn's disease. She states that she did have biopsies and was told that she had Crohn's. She was not treated at that time. She states approximately 2 weeks ago, her symptoms became worse and was started on what sounds like generic Lialda 1.2 g pills 4 a day. She really did not improve on the mesalamine and presented to the emergency room last night with severe abdominal pain, 10 to 20 liquid bowel movements per day and occasional blood. She states that she does not want to return to see Dr. Gutierrez. She does want a female peer educator and has requested Dr. Amanda Heaton for followup after this hospitalization. She states that since starting on the steroids last night, she is feeling a little bit better. She states that her pain is slightly better. Her bowel movements have decreased slightly in number and she is feeling slightly better. She does have a family history of Crohn's disease, her biological sister. She has been started on Solu-Medrol 20 mg IV q.8. PAST MEDICAL HISTORY: Significant for: 1. Crohn's, we do not have any further records regarding this. 2. Anxiety. PAST SURGICAL HISTORY: None. MEDICATIONS: Upon admission include: 1. Lialda 1.2 g 4 times a day. 2. Wellbutrin 150 mg. 3. Celexa 20 mg. 4. Zofran 4 mg. 5. Lorazepam 0.5 mg. ALLERGIES: None. FAMILY HISTORY: Diabetes, COPD, Crohn's disease. SOCIAL HISTORY: She continues to smoke; I counseled her against this. She drinks 4 to 5 beers a night; I counseled her against this. REVIEW OF SYSTEMS: 12 systems were reviewed, other than that mentioned in the HPI were unremarkable. PHYSICAL EXAM: Temperature is 98.0, blood pressure is 124/62, pulse is 47, respiratory rate of 16, O2 sat is 100%. General: Well-appearing female, no apparent distress, alert, oriented, pleasant, fluent. HEENT: Mucous membranes are moist. No lesions, ulcers, or exudate. Neck is supple. Trachea is midline. Head is normocephalic, atraumatic. Heart: Regular rate and rhythm. No murmurs, rubs, or gallops. Lungs: Clear to auscultation bilaterally. No wheezes, rales, or rhonchi. Abdomen: Positive bowel sounds. Soft. Moderate tenderness throughout. No rebound. No guarding. Skin is warm and dry. No rashes or ulcers. LABORATORY DATA/DIAGNOSTIC STUDIES: Labs of note, she has a white count of 24.3 , hemoglobin is 13. C-reactive protein is 186. AST is 10, ALT is 7. She also has a CT abdomen and pelvis that shows mild pancolitis similar to a year ago, mesenteric lymphadenopathy. ASSESSMENT AND PLAN: This is a pleasant 33-year-old female with a diagnosis of Crohn's disease who is experiencing a flare at this time. She has been started on IV steroids already. I agree with 20 of Solu-Medrol every 8. I would recommend we check a stool for C. diff given her fairly elevated white count, rarely this can be seen with steroids; however, I would like to rule that out. We need to get the records from Dr. Gutierrez's office. The patient has requested followup with Dr. Amanda Heaton at [facility] after discharge. We will arrange for an appointment with her. I did have a discussion with the patient regarding future treatment of her Crohn's, potentially continuing with the mesalamine products if we can get her into remission with the prednisone versus one of the biologics such as Remicade or Humira. The patient does understand Remicade as her sister is on Remicade. We will continue to follow along very closely at this point. [id number]/[facility] #: [id number] [facility]
[2018-11-03] MEDS: Ondansetron INJ* 2 MG/ML VIAL IV PRN ×3 (02:35→20:32)
[2018-11-03] MEDS: Morphine VIAL* 4 MG/ML VIAL (1 ml vial) IV PRN ×5 (02:35→20:32)
[2018-11-03] MEDS: methylPREDNISolone SOD 40 MG* 1 ML VIAL IV SCH ×2 (05:58→14:16)
[2018-11-03] MEDS: NS 0.9% 1000 ML* 1,000 ML IV SCH ×2 (05:58→16:24)
[2018-11-03] MEDS: BuPROPion XL* 150 MG TAB.XL PO SCH (07:43)
[2018-11-03] MEDS: Citalopram TAB* 20 MG PO SCH (07:43)
[2018-11-03] MEDS: PROCHLORPERAZINE INJ 5 MG/ML 2 ML VIAL IV PRN ×2 (07:51→16:46)
[2018-11-03 12:45] LABS: Hematocrit 36 % (35-47); Hemoglobin 12.2 g/dl (12.0-16.0); Mean Corpuscular HGB Conc 34 g/dl (31-36); Mean Corpuscular Hemoglobin 31 pg (27-31); Mean Corpuscular Volume 92 fL (80-97); Mean Platelet Volume 7.9 fL (7.4-10.4); Platelet Count 350 10^3/ul (150-450); Red Blood Count 3.88 10^6/ul (4.00-5.40); Red Cell Distribution Width 12 % (10.5-15); White Blood Count 17.7 10^3/ul (3.5-10.8)
[2018-11-03 13:00] LABS: EGFR Non-African American 149.9 (>60)
[2018-11-03 13:09] LABS: ABS Basophils 0 10^3/ul (0-0.2); ABS Eosinophils 0 10^3/ul (0-0.6); ABS Lymphocytes 0.8 10^3/ul (1.0-4.8); ABS Monocytes 1.7 10^3/ul (0-0.8); ABS Neutrophils 15.3 10^3/ul (1.5-7.7); ABS Nucleated RBC 0 10^3/ul; Eosinophil % 0 %; Lymphocyte % 4.3 %; Nucleated Red Blood Cells % 0
--- NOTE | 2018-11-03 18:18 | PN ---
Subjective Date of Service: 11/03/18 Interval History: Patient seen and examined. Feeling better, still with abdominal pain but less diffuse, more localized to lower abdomen. Diarrhea improving, no bleeding, still with mucous in stools. No fevers or chills, no vomiting, nausea improved. Objective Active Medications: Bupropion HCl (Wellbutrin Xl *) 150 mg PO DAILY [facility]; Protocol Last Admin: 11/03/18 07:43 Dose: 150 mg Citalopram Hydrobromide (Celexa Tab*) 20 mg PO DAILY [facility] Last Admin: 11/03/18 07:43 Dose: 20 mg Sodium Chloride (Ns 0.9% 1000 Ml*) 1,000 mls @ 100 mls/hr IV PER RATE [facility] Last Admin: 11/03/18 16:24 Dose: 100 mls/hr Lorazepam (Ativan Tab(*)) 0.5 mg PO Q6HR PRN PRN Reason: ANXIETY Mesalamine (Mesalamine Dr Cap*) 1,200 mg PO DAILY [facility] Last Admin: 11/03/18 07:43 Dose: Not Given Methylprednisolone Sodium Succinate (Solu-Medrol 40 Mg) 20 mg IV Q8H [facility] Last Admin: 11/03/18 14:16 Dose: 20 mg Morphine Sulfate (Morphine Vial*) 4 mg IV Q4H PRN PRN Reason: PAIN - MILD Last Admin: 11/03/18 16:47 Dose: 4 mg Ondansetron HCl (Zofran Inj*) 4 mg IV Q6H PRN PRN Reason: NAUSEA Last Admin: 11/03/18 12:41 Dose: 4 mg Prochlorperazine Edisylate (Compazine Inj*) 10 mg IV Q6H PRN PRN Reason: NAUSEA/VOMITING Last Admin: 11/03/18 16:46 Dose: 10 mg Vital Signs - 8 hr 11/03/18 11/03/18 11/03/18 11:17 11:20 12:40 Temperature 97.8 F Pulse Rate 47 58 Respiratory 17 18 Rate Blood Pressure 110/72 (mmHg) O2 Sat by Pulse 98 Oximetry 11/03/18 11/03/18 11/03/18 14:09 15:13 15:22 Temperature 97.8 F Pulse Rate 43 62 Respiratory 18 14 Rate Blood Pressure 112/59 (mmHg) O2 Sat by Pulse 98 Oximetry 11/03/18 16:47 Temperature Pulse Rate Respiratory 18 Rate Blood Pressure (mmHg) O2 Sat by Pulse Oximetry Oxygen Devices in Use Now: None Appearance: alert, thin, NAD Eyes: No Scleral Icterus, PERRLA Ears/Nose/Mouth/Throat: NL Teeth, Lips, Gums, Mucous Membranes Moist Neck: NL Appearance and Movements; NL JVP, Trachea Midline Respiratory: Symmetrical Chest Expansion and Respiratory Effort, Clear to Auscultation Cardiovascular: NL Sounds; No Murmurs; No JVD, RRR Abdominal: - - diffuse lower abdominal tenderness, no guarding, hypoactive BS Lymphatic: No Cervical Adenopathy Extremities: No Edema, No Clubbing, Cyanosis Skin: No Rash or Ulcers Neurological: Alert and Oriented x 3, NL Gait Nutrition: - - tolerating CLD Result Diagrams: 11/03/18 12:29 11/03/18 12:29 Additional Lab and Data: Lab Results 11/01/18 11/01/18 11/01/18 Range/Units 19:06 19:06 19:10 WBC 24.3 H (3.5-10.8) 10^3/ul RBC 4.21 (4.00-5.40) 10^6/ul Hgb 13.0 (12.0-16.0) g/dl Hct 39 (35-47) % MCV 92 (80-97) fL MCH 31 (27-31) pg MCHC 33 (31-36) g/dl RDW 12 (10.5-15) % Plt Count 345 (150-450) 10^3/ul MPV 7.6 (7.4-10.4) fL Neut % (Auto) 85.9 % Lymph % (Auto) 3.7 % [place] % (Auto) 10.1 % Eos % (Auto) 0.2 % Baso % (Auto) 0.1 % Absolute Neuts (auto) 20.9 H (1.5-7.7) 10^3/ul Absolute Lymphs (auto) 0.9 L (1.0-4.8) 10^3/ul Absolute Monos (auto) 2.4 H (0-0.8) 10^3/ul Absolute Eos (auto) 0 (0-0.6) 10^3/ul Absolute Basos (auto) 0 (0-0.2) 10^3/ul Absolute Nucleated RBC 0 10^3/ul Nucleated RBC % 0 Sodium 136 (135-145) mmol/L Potassium 3.2 L (3.5-5.0) mmol/L Chloride 104 (101-111) mmol/L Carbon Dioxide 23 (22-32) mmol/L Anion Gap 9 (2-11) mmol/L BUN 6 (6-24) mg/dL Creatinine 0.62 (0.51-0.95) mg/dL Est GFR ( Amer) 135.0 (>60) Est GFR (Non-Af Amer) 111.6 (>60) BUN/Creatinine Ratio 9.7 (8-20) Glucose 97 (70-100) mg/dL Lactic Acid 0.9 (0.5-2.0) mmol/L Calcium 8.8 (8.6-10.3) mg/dL Total Bilirubin 0.40 (0.2-1.0) mg/dL AST 10 L (13-39) U/L ALT 7 (7-52) U/L Alkaline Phosphatase 103 (34-104) U/L C-Reactive Protein 186.96 H (<8.01) mg/L Total Protein 6.6 (6.4-8.9) g/dL Albumin 3.3 (3.2-5.2) g/dL Globulin 3.3 (2-4) g/dL Albumin/Globulin Ratio 1.0 (1-3) Lipase < 10 L (11.0-82.0) U/L Beta HCG, Quant < 0.60 mIU/mL Microbiology and Other Data: Microbiology 11/02/18 16:35 Stool Gross Appearance - Final Stool Diagnostic Imaging: Patient Name: VEE NO Medical Record#: [id number] Ordering Physician: Chase TORRES Acct.#: [id number] : 1985 Age: 33 Sex: F Location: EMERGENCY DEPARTMENT Exam Date: 11/01/182236 ADM Status: REG ER Order Information: CT ABD/PEL W Accession Number: [id number] CPT: 65232 EXAM: CT Abdomen and Pelvis With Intravenous Contrast EXAM DATE/TIME: 11/01/2018 11:00 PM CLINICAL HISTORY: 33 years old, female; Signs and symptoms; Other: Ab pain, HX of crohns TECHNIQUE: Axial computed tomography images of the abdomen and pelvis with intravenous contrast. All CT scans at this facility use at least one of these dose optimization techniques: automated exposure control; mA and/or kV adjustment per patient size (includes targeted exams where dose is matched to clinical indication); or iterative reconstruction. Coronal and sagittal reformatted images were created and reviewed. CONTRAST: 68 ml of [id number] administered intravenously. COMPARISON: A/P W CT ABD/PEL W 12/07/2017 6:41 AM FINDINGS: Lower thorax: No acute findings. ABDOMEN: Liver: Normal. No mass. Gallbladder and bile ducts: Normal. No calcified stones. No ductal dilation. Pancreas: Normal. No ductal dilation. Spleen: Normal. No splenomegaly. Adrenals: Normal. No mass. Kidneys and ureters: Partial duplication of the left renal collecting system. Stomach and bowel: Wall thickening of the colon from the cecum to the rectum. Appendix: Question of visualization of the appendix measuring 9 mm but is similar to the prior study. PELVIS: Bladder: Unremarkable as visualized. Reproductive: Unremarkable as visualized. ABDOMEN and PELVIS: Intraperitoneal space: Normal. No free air. No significant fluid collection. Bones/joints: No acute fracture. No dislocation. Soft tissues: Unremarkable. Vasculature: Normal. No abdominal aortic aneurysm. Lymph nodes: Mild right lower quadrant mesenteric adenopathy. IMPRESSION: 1. Mild pancolitis which is similar to the prior study of 12/07/2017. 2. Mild right lower quadrant mesenteric adenopathy which is similar to the prior study and is likely reactive 3. Otherwise negative CT abdomen/pelvis. To contact [facility] with a general question: [facility] - [phone] For direct physician to physician contact: Physician Hotline - [phone] [facility] ([facility] Facility ID #[id number]) Assess/Plan/Problems-Billing Assessment: This is a 33 year old female with history of diagnosis of Crohn's in December of this year that has been in a flare since , presents with abdominal pain, diarrhea and dehydration. - Patient Problems (1) Crohn's disease, acute Code(s): K50.90 - CROHN'S DISEASE, UNSPECIFIED, WITHOUT COMPLICATIONS SNOMED Code(s): 57143279 Comment: - With diarrhea, leukocytosis and dehydration (leukocytosis improving) - Per patient, was started on a biologic, but has not been taking since flare started (unable to take large pills causing nausea) - Her GI recommended prednisone which will be continued - IVF, CLD - Follow stool cultures - Empiric atbx coverage - Continue mesalamine and bentyl - [place] plan for initiating a biologic as an outpatient with Dr. Heaton (2) Dehydration Code(s): E86.0 - DEHYDRATION SNOMED Code(s): 94140748 Comment: - Continue IVNS - Lytes repleted/corrected - Continue IVF (3) DVT prophylaxis Code(s): JDC7342 - SNOMED Code(s): 728483378 Comment: - Ambulation (4) Full code status Code(s): Z78.9 - OTHER SPECIFIED HEALTH STATUS SNOMED Code(s): 642235214 Status and Disposition: Inpatient for IVF and antibiotics and steroids. Continue current management.
[2018-11-03] MEDS: LORazepam TAB(*) 0.5 MG PO PRN (18:26)
[2018-11-04] MEDS: methylPREDNISolone SOD 40 MG* 1 ML VIAL IV SCH ×3 (00:09→13:28)
[2018-11-04] MEDS: Morphine VIAL* 4 MG/ML VIAL (1 ml vial) IV PRN ×2 (01:07→11:38)
[2018-11-04] MEDS: NS 0.9% 1000 ML* 1,000 ML IV SCH ×2 (03:00→13:27)
[2018-11-04] MEDS: BuPROPion XL* 150 MG TAB.XL PO SCH (09:34)
[2018-11-04] MEDS: Citalopram TAB* 20 MG PO SCH (09:34)
[2018-11-04] MEDS: PROCHLORPERAZINE INJ 5 MG/ML 2 ML VIAL IV PRN (11:38)
--- NOTE | 2018-11-04 14:24 | PN ---
Subjective Date of Service: 11/04/18 Interval History: Pt reports she feels "much better today" reports stools have decreased and have had 5 today, previously having > 10+ stools a day. No blood noted. She denies fever/chills. Tolerating diet. Pt reports pain is controlled and improving Objective Active Medications: Bupropion HCl (Wellbutrin Xl *) 150 mg PO DAILY [facility]; Protocol Last Admin: 11/04/18 09:34 Dose: 150 mg Citalopram Hydrobromide (Celexa Tab*) 20 mg PO DAILY [facility] Last Admin: 11/04/18 09:34 Dose: 20 mg Sodium Chloride (Ns 0.9% 1000 Ml*) 1,000 mls @ 100 mls/hr IV PER RATE [facility] Last Admin: 11/04/18 13:27 Dose: 100 mls/hr Lorazepam (Ativan Tab(*)) 0.5 mg PO Q6HR PRN PRN Reason: ANXIETY Last Admin: 11/03/18 18:26 Dose: 0.5 mg Mesalamine (Mesalamine Dr Cap*) 1,200 mg PO DAILY [facility] Last Admin: 11/04/18 09:36 Dose: Not Given Methylprednisolone Sodium Succinate (Solu-Medrol 40 Mg) 20 mg IV Q8H [facility] Last Admin: 11/04/18 13:28 Dose: 20 mg Morphine Sulfate (Morphine Vial*) 4 mg IV Q4H PRN PRN Reason: PAIN - MILD Last Admin: 11/04/18 11:38 Dose: 4 mg Ondansetron HCl (Zofran Inj*) 4 mg IV Q6H PRN PRN Reason: NAUSEA Last Admin: 11/03/18 20:32 Dose: 4 mg Prochlorperazine Edisylate (Compazine Inj*) 10 mg IV Q6H PRN PRN Reason: NAUSEA/VOMITING Last Admin: 11/04/18 11:38 Dose: 10 mg Vital Signs - 8 hr 11/04/18 11/04/18 11/04/18 07:43 11:32 11:38 Temperature 98.0 F 98.1 F Pulse Rate 46 42 Respiratory 14 16 14 Rate Blood Pressure 118/73 126/65 (mmHg) O2 Sat by Pulse 99 99 Oximetry 11/04/18 11/04/18 11/04/18 12:00 13:10 14:20 Temperature 98.0 F Pulse Rate 56 44 Respiratory 14 16 Rate Blood Pressure 117/65 (mmHg) O2 Sat by Pulse 98 Oximetry Oxygen Devices in Use Now: None Appearance: 33 yo female laying in bed A+Ox32 in NAD Eyes: No Scleral Icterus, PERRLA Ears/Nose/Mouth/Throat: NL Teeth, Lips, Gums, Mucous Membranes Moist Neck: NL Appearance and Movements; NL JVP Respiratory: Symmetrical Chest Expansion and Respiratory Effort, Clear to Auscultation Cardiovascular: NL Sounds; No Murmurs; No JVD, RRR, No Edema Abdominal: NL Sounds; No Tenderness; No Distention Extremities: No Edema, No Clubbing, Cyanosis Skin: No Rash or Ulcers, No Nodules or Sclerosis Neurological: Alert and Oriented x 3, NL Sensation, NL Gait, NL Muscle Strength and Tone Lines/Tubes/Other Access: Clean, Dry and Intact Peripheral IV Nutrition: Taking PO's Result Diagrams: 11/03/18 12:29 11/03/18 12:29 Additional Lab and Data: Lab Results 11/01/18 11/01/18 11/01/18 Range/Units 19:06 19:06 19:10 WBC 24.3 H (3.5-10.8) 10^3/ul RBC 4.21 (4.00-5.40) 10^6/ul Hgb 13.0 (12.0-16.0) g/dl Hct 39 (35-47) % MCV 92 (80-97) fL MCH 31 (27-31) pg MCHC 33 (31-36) g/dl RDW 12 (10.5-15) % Plt Count 345 (150-450) 10^3/ul MPV 7.6 (7.4-10.4) fL Neut % (Auto) 85.9 % Lymph % (Auto) 3.7 % [place] % (Auto) 10.1 % Eos % (Auto) 0.2 % Baso % (Auto) 0.1 % Absolute Neuts (auto) 20.9 H (1.5-7.7) 10^3/ul Absolute Lymphs (auto) 0.9 L (1.0-4.8) 10^3/ul Absolute Monos (auto) 2.4 H (0-0.8) 10^3/ul Absolute Eos (auto) 0 (0-0.6) 10^3/ul Absolute Basos (auto) 0 (0-0.2) 10^3/ul Absolute Nucleated RBC 0 10^3/ul Nucleated RBC % 0 Sodium 136 (135-145) mmol/L Potassium 3.2 L (3.5-5.0) mmol/L Chloride 104 (101-111) mmol/L Carbon Dioxide 23 (22-32) mmol/L Anion Gap 9 (2-11) mmol/L BUN 6 (6-24) mg/dL Creatinine 0.62 (0.51-0.95) mg/dL Est GFR ( Amer) 135.0 (>60) Est GFR (Non-Af Amer) 111.6 (>60) BUN/Creatinine Ratio 9.7 (8-20) Glucose 97 (70-100) mg/dL Lactic Acid 0.9 (0.5-2.0) mmol/L Calcium 8.8 (8.6-10.3) mg/dL Total Bilirubin 0.40 (0.2-1.0) mg/dL AST 10 L (13-39) U/L ALT 7 (7-52) U/L Alkaline Phosphatase 103 (34-104) U/L C-Reactive Protein 186.96 H (<8.01) mg/L Total Protein 6.6 (6.4-8.9) g/dL Albumin 3.3 (3.2-5.2) g/dL Globulin 3.3 (2-4) g/dL Albumin/Globulin Ratio 1.0 (1-3) Lipase < 10 L (11.0-82.0) U/L Beta HCG, Quant < 0.60 mIU/mL Microbiology and Other Data: Microbiology 11/02/18 16:35 Stool Gross Appearance - Final Stool Diagnostic Imaging: Patient Name: VEE NO Medical Record#: [id number] Ordering Physician: Chase TORRES Acct.#: [id number] : 1985 Age: 33 Sex: F Location: EMERGENCY DEPARTMENT Exam Date: 11/01/182236 ADM Status: REG ER Order Information: CT ABD/PEL W Accession Number: [id number] CPT: 14345 EXAM: CT Abdomen and Pelvis With Intravenous Contrast EXAM DATE/TIME: 11/01/2018 11:00 PM CLINICAL HISTORY: 33 years old, female; Signs and symptoms; Other: Ab pain, HX of crohns TECHNIQUE: Axial computed tomography images of the abdomen and pelvis with intravenous contrast. All CT scans at this facility use at least one of these dose optimization techniques: automated exposure control; mA and/or kV adjustment per patient size (includes targeted exams where dose is matched to clinical indication); or iterative reconstruction. Coronal and sagittal reformatted images were created and reviewed. CONTRAST: 68 ml of [id number] administered intravenously. COMPARISON: A/P W CT ABD/PEL W 12/07/2017 6:41 AM FINDINGS: Lower thorax: No acute findings. ABDOMEN: Liver: Normal. No mass. Gallbladder and bile ducts: Normal. No calcified stones. No ductal dilation. Pancreas: Normal. No ductal dilation. Spleen: Normal. No splenomegaly. Adrenals: Normal. No mass. Kidneys and ureters: Partial duplication of the left renal collecting system. Stomach and bowel: Wall thickening of the colon from the cecum to the rectum. Appendix: Question of visualization of the appendix measuring 9 mm but is similar to the prior study. PELVIS: Bladder: Unremarkable as visualized. Reproductive: Unremarkable as visualized. ABDOMEN and PELVIS: Intraperitoneal space: Normal. No free air. No significant fluid collection. Bones/joints: No acute fracture. No dislocation. Soft tissues: Unremarkable. Vasculature: Normal. No abdominal aortic aneurysm. Lymph nodes: Mild right lower quadrant mesenteric adenopathy. IMPRESSION: 1. Mild pancolitis which is similar to the prior study of 12/07/2017. 2. Mild right lower quadrant mesenteric adenopathy which is similar to the prior study and is likely reactive 3. Otherwise negative CT abdomen/pelvis. To contact [facility] with a general question: Operations Center - [phone] For direct physician to physician contact: Physician Hotline - [phone] [facility] ([facility] Facility ID #[id number]) Assess/Plan/Problems-Billing Assessment: This is a 33 year old female with history of diagnosis of Crohn's in December of this year that has been in a flare since , presents with abdominal pain, diarrhea and dehydration. - Patient Problems (1) Crohn's disease, acute Comment: - With diarrhea, leukocytosis and dehydration (leukocytosis improving) - Per patient, was started on a biologic, but has not been taking since flare started - plan to follow up with GI as outpt - Her GI recommended prednisone which will be continued - DC IVF - encouraged PO fluids - Negative C-diff - Empiric atbx coverage - Continue mesalamine and bentyl - switch IV solumedrol to PO - [place] plan for initiating a biologic as an outpatient with Dr. Heaton (2) Dehydration Comment: - resolved (3) Full code status (4) DVT prophylaxis Comment: - Ambulation Status and Disposition: Inpatient for Crohns flare. Plan for DC to home, possibly in am if medically stable
[2018-11-04] MEDS: HYDROcodone/ACETAMIN 5-325 MG* 1 TAB PO PRN ×2 (16:19→21:11)
[2018-11-04 18:33] LABS: Red Blood Count 3.96 10^6/ul (4.00-5.40)
[2018-11-04 18:34] LABS: Hematocrit 37 % (35-47); Hemoglobin 12.2 g/dl (12.0-16.0); Mean Corpuscular HGB Conc 33 g/dl (31-36); Mean Corpuscular Hemoglobin 31 pg (27-31); Mean Corpuscular Volume 93 fL (80-97); Mean Platelet Volume 8.2 fL (7.4-10.4); Platelet Count 357 10^3/ul (150-450); Red Cell Distribution Width 12 % (10.5-15)
[2018-11-04] MEDS ORDERED: predniSONE TAB* 20 MG PO ONE (20:00)
[2018-11-04] MEDS: LORazepam TAB(*) 0.5 MG PO PRN (20:55)
[2018-11-05 06:31] LABS: Hematocrit 36 % (35-47); Hemoglobin 12.4 g/dl (12.0-16.0); Mean Corpuscular HGB Conc 34 g/dl (31-36); Mean Corpuscular Hemoglobin 32 pg (27-31); Mean Corpuscular Volume 93 fL (80-97); Mean Platelet Volume 7.8 fL (7.4-10.4); Platelet Count 336 10^3/ul (150-450); Red Blood Count 3.93 10^6/ul (4.00-5.40); Red Cell Distribution Width 12 % (10.5-15)
[2018-11-05] MEDS: HYDROcodone/ACETAMIN 5-325 MG* 1 TAB PO PRN (06:40)
[2018-11-05 06:48] LABS: EGFR Non-African American 139.8 (>60)
[2018-11-05 07:14] LABS: ABS Basophils 0 10^3/ul (0-0.2); ABS Eosinophils 0 10^3/ul (0-0.6); ABS Lymphocytes 1.1 10^3/ul (1.0-4.8); ABS Monocytes 1.7 10^3/ul (0-0.8); ABS Neutrophils 7.2 10^3/ul (1.5-7.7); ABS Nucleated RBC 0 10^3/ul; Eosinophil % 0 %; Lymphocyte % 11.3 %; Nucleated Red Blood Cells % 0.1
[2018-11-05] MEDS ORDERED: HYDROcodone/ACETAMIN 5-325 MG* 1 TAB PO PRN (07:54)
[2018-11-05 08:26] VITALS: BP 117/68
[2018-11-05] MEDS ORDERED: predniSONE TAB* 20 MG PO SCH (09:00)
[2018-11-05] MEDS: BuPROPion XL* 150 MG TAB.XL PO SCH (09:41)
[2018-11-05] MEDS: Citalopram TAB* 20 MG PO SCH (09:42)
[2018-11-05] MEDS ORDERED: predniSONE TAB* 20 MG PO ONE (09:45)
--- NOTE | 2018-11-05 10:13 | DCNOTE ---
Subjective Date of Service: 11/05/18 Interval History: Pt reports she feels "much better today" and would like to go home. She reports some continued lower abdominal cramping but states this is controlled by heating pad or prn norco. She reports only 2 BMs overnight, no bloody stool. Denies fever/chills. tolerating soft diet. Discussed DC plan. Objective Active Medications: Hydrocodone Bitart/Acetaminophen ([place] 5-325 Tab*) 1 tab PO Q4H PRN PRN Reason: PAIN Bupropion HCl (Wellbutrin Xl *) 150 mg PO DAILY [facility]; Protocol Last Admin: 11/05/18 09:41 Dose: 150 mg Citalopram Hydrobromide (Celexa Tab*) 20 mg PO DAILY [facility] Last Admin: 11/05/18 09:42 Dose: 20 mg Lorazepam (Ativan Tab(*)) 0.5 mg PO Q6HR PRN PRN Reason: ANXIETY Last Admin: 11/04/18 20:55 Dose: 0.5 mg Mesalamine (Mesalamine Dr Cap*) 1,200 mg PO DAILY [facility] Last Admin: 11/05/18 09:43 Dose: Not Given Ondansetron HCl (Zofran Inj*) 4 mg IV Q6H PRN PRN Reason: NAUSEA Last Admin: 11/03/18 20:32 Dose: 4 mg Prednisone (Deltasone Tab*) 60 mg PO DAILY [facility] Prochlorperazine Edisylate (Compazine Inj*) 10 mg IV Q6H PRN PRN Reason: NAUSEA/VOMITING Last Admin: 11/04/18 11:38 Dose: 10 mg Vital Signs - 8 hr 11/05/18 11/05/18 11/05/18 03:44 03:50 06:40 Temperature 98.0 F Pulse Rate 40 46 Respiratory 16 Rate Blood Pressure 119/67 (mmHg) O2 Sat by Pulse 98 Oximetry 11/05/18 11/05/18 11/05/18 07:43 08:00 09:20 Temperature 98.2 F Pulse Rate Respiratory 16 16 16 Rate Blood Pressure 117/68 (mmHg) O2 Sat by Pulse 99 Oximetry Oxygen Devices in Use Now: None Appearance: A+O x3 in NAD Eyes: No Scleral Icterus, PERRLA Ears/Nose/Mouth/Throat: NL Teeth, Lips, Gums, Mucous Membranes Moist Neck: NL Appearance and Movements; NL JVP Respiratory: Symmetrical Chest Expansion and Respiratory Effort, Clear to Auscultation Cardiovascular: NL Sounds; No Murmurs; No JVD, RRR, No Edema Abdominal: - - soft, flat, no gaurding, mild tenderness to lower mid quad Extremities: No Edema, No Clubbing, Cyanosis Skin: No Rash or Ulcers, No Nodules or Sclerosis Neurological: Alert and Oriented x 3, NL Sensation, NL Gait, NL Muscle Strength and Tone Lines/Tubes/Other Access: Clean, Dry and Intact Peripheral IV Nutrition: Taking PO's - Nutrition: Malnutrition Diagnosis/Plan Malnutrition Assessment by Registered Dietitian: Malnutrition Assessment Clinical Characteristics Acute,Severe Malnutrition Assessment: severe wt loss in setting of poor intake x 7-10 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 Pt will tolerate diet advancement without GI distress 2. Intake will support wt gain to UBW, and preserve lean body mass 3. Pt will establish regular bowel pattern without N/V/D Result Diagrams: 11/05/18 06:21 11/05/18 06:21 Additional Lab and Data: Lab Results 11/01/18 11/01/18 11/01/18 Range/Units 19:06 19:06 19:10 WBC 24.3 H (3.5-10.8) 10^3/ul RBC 4.21 (4.00-5.40) 10^6/ul Hgb 13.0 (12.0-16.0) g/dl Hct 39 (35-47) % MCV 92 (80-97) fL MCH 31 (27-31) pg MCHC 33 (31-36) g/dl RDW 12 (10.5-15) % Plt Count 345 (150-450) 10^3/ul MPV 7.6 (7.4-10.4) fL Neut % (Auto) 85.9 % Lymph % (Auto) 3.7 % [place] % (Auto) 10.1 % Eos % (Auto) 0.2 % Baso % (Auto) 0.1 % Absolute Neuts (auto) 20.9 H (1.5-7.7) 10^3/ul Absolute Lymphs (auto) 0.9 L (1.0-4.8) 10^3/ul Absolute Monos (auto) 2.4 H (0-0.8) 10^3/ul Absolute Eos (auto) 0 (0-0.6) 10^3/ul Absolute Basos (auto) 0 (0-0.2) 10^3/ul Absolute Nucleated RBC 0 10^3/ul Nucleated RBC % 0 Sodium 136 (135-145) mmol/L Potassium 3.2 L (3.5-5.0) mmol/L Chloride 104 (101-111) mmol/L Carbon Dioxide 23 (22-32) mmol/L Anion Gap 9 (2-11) mmol/L BUN 6 (6-24) mg/dL Creatinine 0.62 (0.51-0.95) mg/dL Est GFR ( Amer) 135.0 (>60) Est GFR (Non-Af Amer) 111.6 (>60) BUN/Creatinine Ratio 9.7 (8-20) Glucose 97 (70-100) mg/dL Lactic Acid 0.9 (0.5-2.0) mmol/L Calcium 8.8 (8.6-10.3) mg/dL Total Bilirubin 0.40 (0.2-1.0) mg/dL AST 10 L (13-39) U/L ALT 7 (7-52) U/L Alkaline Phosphatase 103 (34-104) U/L C-Reactive Protein 186.96 H (<8.01) mg/L Total Protein 6.6 (6.4-8.9) g/dL Albumin 3.3 (3.2-5.2) g/dL Globulin 3.3 (2-4) g/dL Albumin/Globulin Ratio 1.0 (1-3) Lipase < 10 L (11.0-82.0) U/L Beta HCG, Quant < 0.60 mIU/mL Microbiology and Other Data: Microbiology 11/02/18 16:35 Stool Gross Appearance - Final Stool Diagnostic Imaging: Patient Name: VEE NO Medical Record#: [id number] Ordering Physician: Chase TORRES Acct.#: [id number] : 1985 Age: 33 Sex: F Location: EMERGENCY DEPARTMENT Exam Date: 11/01/182236 ADM Status: REG ER Order Information: CT ABD/PEL W Accession Number: [id number] CPT: 09755 EXAM: CT Abdomen and Pelvis With Intravenous Contrast EXAM DATE/TIME: 11/01/2018 11:00 PM CLINICAL HISTORY: 33 years old, female; Signs and symptoms; Other: Ab pain, HX of crohns TECHNIQUE: Axial computed tomography images of the abdomen and pelvis with intravenous contrast. All CT scans at this facility use at least one of these dose optimization techniques: automated exposure control; mA and/or kV adjustment per patient size (includes targeted exams where dose is matched to clinical indication); or iterative reconstruction. Coronal and sagittal reformatted images were created and reviewed. CONTRAST: 68 ml of [id number] administered intravenously. COMPARISON: A/P W CT ABD/PEL W 12/07/2017 6:41 AM FINDINGS: Lower thorax: No acute findings. ABDOMEN: Liver: Normal. No mass. Gallbladder and bile ducts: Normal. No calcified stones. No ductal dilation. Pancreas: Normal. No ductal dilation. Spleen: Normal. No splenomegaly. Adrenals: Normal. No mass. Kidneys and ureters: Partial duplication of the left renal collecting system. Stomach and bowel: Wall thickening of the colon from the cecum to the rectum. Appendix: Question of visualization of the appendix measuring 9 mm but is similar to the prior study. PELVIS: Bladder: Unremarkable as visualized. Reproductive: Unremarkable as visualized. ABDOMEN and PELVIS: Intraperitoneal space: Normal. No free air. No significant fluid collection. Bones/joints: No acute fracture. No dislocation. Soft tissues: Unremarkable. Vasculature: Normal. No abdominal aortic aneurysm. Lymph nodes: Mild right lower quadrant mesenteric adenopathy. IMPRESSION: 1. Mild pancolitis which is similar to the prior study of 12/07/2017. 2. Mild right lower quadrant mesenteric adenopathy which is similar to the prior study and is likely reactive 3. Otherwise negative CT abdomen/pelvis. To contact [facility] with a general question: [facility] - [phone] For direct physician to physician contact: Physician Hotline - [phone] [facility] ([facility] Facility ID #[id number]) Assess/Plan/Problems-Billing Assessment: This is a 33 year old female with history of diagnosis of Crohn's in December of this year that has been in a flare since [place], presents with abdominal pain, diarrhea and dehydration. - Patient Problems (1) Crohn's disease, acute Comment: - Much improvement - stable for DC to home today - Presented with diarrhea, leukocytosis and dehydration (leukocytosis resolved) - Per patient, was started on a biologic, but has not been taking since flare started - plan to follow up with GI as outpt - Per GI recommended prednisone 60 mg - Negative C-diff - Continue mesalamine -f/u next week scheduled in GI office - Discussed antiinflammatory diet and probiotic recommendations. (2) Dehydration Comment: - resolved (3) Full code status (4) DVT prophylaxis Comment: - Ambulation Status and Disposition: Inpatient for Crohns flare. Plan for DC to home
--- NOTE | 2018-11-06 04:24 | DS ---
CC: Vivi Jones NP * DISCHARGE SUMMARY: DATE OF ADMISSION: 11/02/18 DATE OF DISCHARGE: 11/05/18 PROVIDER: Reed Emery NP ATTENDING PHYSICIAN: Mari Zaidi MD * (report dictated by Reed Emery NP). PRIMARY CARE PROVIDER: LUIS GroverHRIE LANDFILL ATTENDANT: Dr. Gutierrez. TOMALES LANDFILL ATTENDANT: Dr. Amanda Heaton DISCHARGE DIAGNOSIS: Acute Crohn flare. SECONDARY DIAGNOSES: 1. Depression. 2. Anxiety. HISTORY OF PRESENT ILLNESS AND HOSPITAL COURSE: Please see history and physical by Dr. Ann for full admission details, but in summary, this is a 33- year-old female who was diagnosed with Crohn's in December 2017, who presented to the emergency department on 11/02/18 with acute abdominal pain and diarrhea. She reported on admission that approximately a week and a half prior, she started having abdominal pain, markedly decreased appetite, nausea, vomiting, and diarrhea; losing approximately 6 pounds over the prior week and half. She was admitted to the hospitalist service for Crohn flare. She underwent a CT of the abdomen and pelvis, which showed mild panniculitis which was similar to a prior study on 12/07/17. Also showing mild right lower quad mesenteric adenopathy, which is similar to the prior study and is likely reactive. Otherwise, the CT was negative of the abdomen and pelvis. The patient did report on 10/27/18, she was seen by nurse practitioner at Dr. Gutierrez's office and was started on mesalamine and stool samples were sent to rule out infection prior to administering prednisone; however, she reports she was just recently told by her GI's office that the stool sample was negative for infection. She was supposed to be seen on the day of admission for followup in the GI office; however, due to her pain and diarrhea, not being able to tolerate p.o., she presented to the emergency department for further evaluation. She report at that time she had been having 10 to 20 diarrheal stools per day. She was admitted to the hospitalist service and was started on IV Solu-Medrol as well as she was found to have dehydration and was given IV fluids. Her labs on admission showed a white blood cell count of 24K and a CRP of 186.96. She was found to have mild hypokalemia with a potassium of 3.2, in which she was given replacement. She underwent stool testing for C. diff which was negative. She had a negative urine culture with no growth. The patient has done well throughout her hospitalization. She was seen by recreation programmer, Dr. Negron , who agreed with the outlined plan. The next day, the patient was seen by recreation programmer, Dr. Best, who recommended oral prednisone 60 mg. At the time of Gastroenterology consultation, the patient enquired about transferring to the service of Dr. Jacob Fisher as she would like to have a local recreation programmer and a female GI doctor. The patient has been referred to Dr. Amanda Heaton at [facility]. She has a followup appointment on 11/13/18. It was discussed with the patient that she may possibly need a biologic agent such as Remicade or Humira at this time. The plan is continue with prednisone and mesalamine. The patient has done well throughout her hospitalization. Over the past 48 hours, her bowel movements have greatly reduced. She was tolerating a soft p.o. diet and has reduction in pain. She reports that overnight she has only had 2 bowel movements and this morning she had one soft. She feels well. She denies any fever or chills. Her nausea resolved approximately 48 hours ago and has not had any vomiting. The patient is stable for discharge to home with close followup with her primary care provider and recreation programmer, Dr. Amanda Heaton. DISCHARGE INSTRUCTIONS: Discharge instructions were reviewed with the patient as well as considering antiinflammatory diet, which the patient and I reviewed and starting a probiotic. The patient was educated if she has any worsening or concerning symptoms to return to the emergency department. DISCHARGE MEDICATIONS: 1. Mesalamine 1.2 g p.o. daily. 2. Bupropion XL 150 mg p.o. daily. 3. Celexa 20 mg p.o. daily. 4. Lorazepam 0.5 mg p.o. q.4 hours p.r.n. 5. Acetaminophen 1000 mg p.o. q.8 hours. The patient was instructed that she may take this scheduled to try to reduce taking opioids. 6. Oxycodone 5 mg p.o. q.8 hours p.r.n. Max daily dose 4 tablets. The patient was given a 3-day supply. 7. Prednisone 60 mg p.o. daily until follow -up with GI DISCHARGE PLAN: 1. Follow up with Dr. Amanda Heaton on 11/13/18 at 4 p.m. 2. Follow up with primary care provider within 1 week. 3. The patient was instructed to return to the emergency department if any worsening or concerning symptoms. 4. The patient was instructed to continue with soft diet, advancing as tolerating, considering an antiinflammatory diet, which I reviewed with the patient. TIME SPENT: Approximately 60 minutes was spent on this discharge. REED EMERY NP [id number]/[facility] #: [id number] JASPAL
[2018-11-06] MEDS ORDERED: predniSONE TAB* 20 MG PO SCH (09:00)
== END 2018-11-05 11:10 | disposition home or self-care (01) | DRG 245 ==
LOC: ED 17:03 → MED 11-02 02:19 → OBSVTOIN 11-04 14:21
PROVIDERS: ADMIT Hospitalist; ATTEND Internal Medicine
DX: K50.90 Crohn's disease, unspecified, without complications (principal); E44.1 Mild protein-calorie malnutrition; Z68.1 Body mass index [BMI] 19.9 or less, adult; F32.9 Major depressive disorder, single episode, unspecified; F41.9 Anxiety disorder, unspecified; M79.3 Panniculitis, unspecified; R59.0 Localized enlarged lymph nodes; E86.0 Dehydration; E87.6 Hypokalemia; R40.2362 Coma scale, best motor response, obeys commands, at arrival to emergency department; F17.210 Nicotine dependence, cigarettes, uncomplicated; R40.2142 Coma scale, eyes open, spontaneous, at arrival to emergency department; R40.2252 Coma scale, best verbal response, oriented, at arrival to emergency department; Z79.52 Long term (current) use of systemic steroids; Z83.3 Family history of diabetes mellitus; Z83.6 Family history of other diseases of the respiratory system; Z83.79 Family history of other diseases of the digestive system; Z72.89 Other problems related to lifestyle; Z80.0 Family history of malignant neoplasm of digestive organs
CPT/HCPCS: 36415; 74018; 74177; 80048; 80053; 81003; 81015; 83605; 83690; 84702; 85025; 85027; 86140; 87086; 87493; 99285; 99406; A9270-GY; J0780; J2270; J2405; J2765; J2920; J2930; J7512; Q9967

== ENCOUNTER 2019-11-28 03:38 | Observation (INO) | payer BC, OTHER ==
[2019-11-28] MEDS ORDERED: NS 0.9% 1000 ML** 1,000 ML IV ONE (04:01)
--- NOTE | 2019-11-28 04:09 | ED ---
Skin Complaint - HPI Summary HPI Summary: This pt is a 34 Y/O F presenting to [facility] with a CC of a perineum abscess. She states that she was diagnosed on 11/26/19 and was given ABx without relief. She states that her symptoms started on 11/24/19 without any known cause. She states that she has had nausea without vomiting. The abscess has grown in both size and severity per the pt and is currently a 8/10 in severity. She states that she has had chills since the onset. She denies any fevers, SOB, and headaches. She states no aggravating or alleviating factors. She has no pertinent PMHx. - History of Current Complaint Chief Complaint: EDRashSkinAbscess Time Seen by Provider: 11/28/19 03:51 Stated Complaint: ABSCESS PER PT Hx Obtained From: Patient Hx Last Menstrual Period: 02/04/17 Onset/Duration: Started Days Ago - 4, Still Present, Worse Since - Friday Skin Exposure Onset/Duration: Days Ago - 4 Timing: Constant Onset Severity: Moderate Current Severity: Severe Pain Intensity: 8 Pain Scale Used: 0-10 Numeric Skin Location: Other: - perineum Character: Pain Aggravating Symptom(s): Nothing Alleviating Symptom(s): Nothing Associated Signs & Symptoms: Negative - fevers, SOB, nausea, and headaches, Nausea, Chills Related History: Foreign Body - Recent Dx of perineum abscess, medication w/out effect. - Additional Pertinent History Primary Care Physician: CY - Allergy/Home Medications Allergies/Adverse Reactions: Allergies Allergy/AdvReac Type Severity Reaction Status Date / Time sulfamethoxazole AdvReac DOESN'T Verified 11/28/19 03:41 [From Bactrim] WORK FOR PT trimethoprim [From Bactrim] AdvReac DOESN'T Verified 11/28/19 03:41 WORK FOR PT PMH/Surg Hx/FS Hx/Imm Hx Previously Healthy: Yes Endocrine/Hematology History: Denies: Hx Diabetes Cardiovascular History: Denies: Hx Cardiac Arrest, Hx Hypertension History: Denies: Hx Dialysis, Hx Renal Disease Sensory History: Reports: Hx Contacts or Glasses Denies: Hx Hearing Aid Opthamlomology History: Reports: Hx Contacts or Glasses Psychiatric History: Reports: Hx Anxiety, Hx Depression - Cancer History Hx Chemotherapy: No Hx Radiation Therapy: No - Immunization History Date of Influenza Vaccine: has not yet received Infectious Disease History: No Infectious Disease History: Denies: Traveled Outside the [place] in Last 30 Days - Family History Known Family History: Positive: Other - Negative colon Cancer. Family History: CROHNS - SISTER - Social History Alcohol Use: Daily Alcohol Amount: several beer/night Hx Substance Use: Yes Substance Use Type: Reports: Marijuana Substance Use Comment - Amount & Last Used: daily Smoking Status (MU): Heavy Every Day Tobacco Smoker Type: Cigarettes Amount Used/How Often: 1 ppd Length of Time of Smoking/Using Tobacco: started at age 16 Have You Smoked in the Last Year: Yes Review of Systems Positive: Chills. Negative: Fever Positive: Nausea. Negative: Vomiting Skin: Other - perineum abscess Physical Exam - Summary Physical Exam Summary: Appearance: Well-appearing, Well-nourished, lying in bed comfortably Skin: Warm, dry, no obvious rash Eyes: sclera anicteric, no conjunctival pallor ENT: mucous membranes moist, pharynx appears normal Neck: Supple, nontender Respiratory: Clear to auscultation, no signs of respiratory distress Cardiovascular: Normal S1, S2. No murmurs. Normal distal pulses in tibial and radial bilaterally. Abdomen: Soft, nontender, normal active bowel sounds present Musculoskeletal: Normal, Strength/ROM Intact Neurological: A&Ox3, awake and alert, mentation is normal, speech is fluent and appropriate Psychiatric: affect is normal, does not appear anxious or depressed GIGU: Perineum shows swelling and tenderness perirectal area between the vulva and the rectum on the L side. No pointing here or drainage Triage Information Reviewed: Yes Vital Signs On Initial Exam: Initial Vitals Temp Pulse Resp BP Pulse Ox 98.3 F 80 15 139/95 97 11/28/19 03:39 11/28/19 03:39 11/28/19 03:39 11/28/19 03:39 11/28/19 03:39 Vital Signs Reviewed: Yes Procedures - Sedation Patient Received Moderate/Deep Sedation with Procedure: No Diagnostics - Vital Signs Vital Signs Temp Pulse Resp BP Pulse Ox 11/28/19 03:39 98.3 F 80 15 139/95 97 - Laboratory Result Diagrams: 11/28/19 04:15 11/28/19 04:15 Lab Statement: Any lab studies that have been ordered have been reviewed, and results considered in the medical decision making process. - CT Pelvic CT Interpretation Completed By: Radiologist Summary of CT Findings: 1. Large left perianal abscess measuring approximately 2.2 x 1.4 x 3.[address] cm[address] negative [address] pelvis. ED physician has reviewed this report. Course/Dx - Course Course Of Treatment: This pt is a 34 Y/O F presenting to [facility] with a CC of a perineum abscess. She states that she was diagnosed on 11/26/19 and was given ABx without relief. She states that her symptoms started on 11/24/19 without any known cause. She states that she has had nausea without vomiting. The abscess has grown in both size and severity per the pt and is currently a 8/10 in severity. Her PE found that her Perineum shows swelling and tenderness perirectal area between the vulva and the rectum on the L side. No pointing here or drainage. Her Pelvic CT found the followin. Large left perianal abscess measuring approximately 2.2 x 1.4 x 3.4 cm[address] negative [address] pelvis. She was given the following medications during her ED course: Morphine , Zofran, Zofran. She has abnormalities in WBCs, absolute monos, and absolute neuts. [address] Mcintyre, surgery, recomended the pt be put of zosine. He states that he will visit the pt in the ED for a consult. She will be a sign out to Dr. Dorado from Dr. Gupta at shift change 0700 11/28/19 pending a consult and disposition. Her Dx is a perineum abscess. - Diagnoses Provider Diagnoses: Abscess of perineum - Physician Notifications Discussed Care Of Patient With: Mao Mcintyre Time Discussed With Above Provider: 06:46 Instructed by Provider To: Will See In ED Discharge ED - Sign-Out/Discharge Documenting (check all that apply): Sign-Out Patient Signing out patient TO: Rosales Dorado - Discharge Plan Condition: Stable Referrals: Vivi Jones NP [Primary Care Provider] - - Attestation Statements Document Initiated by Scribe: Yes Documenting Scribe: Viet Barbosa Provider For Whom Scribe is Documenting (Include Credential): Kody Gupta MD Scribe Attestation: Viet Oliver, scribed for Kody Gupta MD on 11/28/19 at 0640. Status of Scribe Document: Ready
[2019-11-28] MEDS ORDERED: Morphine 4 MG/ML VIAL (1 ml) 4 MG/ML VIAL IV ONE ×2 (04:13→06:47)
[2019-11-28] MEDS ORDERED: Morphine 4 MG/ML VIAL (1 ml) 4 MG/ML VIAL IV PRN (04:13)
[2019-11-28] MEDS ORDERED: Ondansetron INJ* 2 MG/ML VIAL IV ONE (04:16)
[2019-11-28] MEDS ORDERED: Ondansetron INJ* 2 MG/ML VIAL ONE (04:23)
[2019-11-28 04:25] LABS: Hematocrit 37 % (35-47); Hemoglobin 12.6 g/dL (12.0-16.0); Mean Corpuscular HGB Conc 34 g/dL (31-36); Mean Corpuscular Hemoglobin 34 pg (27-31); Mean Corpuscular Volume 98 fL (80-97); Mean Platelet Volume 8.7 fL (7.4-10.4); Platelet Count 180 10^3/uL (150-450); Red Blood Count 3.75 10^6 /uL (3.70-4.87); Red Cell Distribution Width 11 % (10-15); White Blood Count 16.2 10^3/uL (3.5-10.8)
[2019-11-28 04:40] LABS: ALT 9 U/L (7-52); AST 14 U/L (13-39); Albumin 3.8 g/dL (3.2-5.2); Albumin/Globulin Ratio 1.3 (1-3); Alkaline Phosphatase 61 U/L (34-104); Anion Gap 5 mmol/L (2-11); BUN/Creatinine Ratio 13.1 (8-20); Blood Urea Nitrogen 8 mg/dL (6-24); CO2 Carbon Dioxide 24 mmol/L (22-32); Calcium 9.1 mg/dL (8.6-10.3); Chloride 107 mmol/L (101-111); EGFR African American 136.7 (>60); Globulin 2.9 g/dL (2-4); Glucose 107 mg/dL (70-100); Sodium 136 mmol/L (135-145); Total Protein 6.7 g/dL (6.4-8.9)
[2019-11-28 04:43] LABS: ABS Basophils 0.1 10^3/ul (0-0.2); ABS Eosinophils 0.1 10^3/ul (0-0.6); ABS Lymphocytes 1.7 10^3/ul (1.0-4.8); ABS Monocytes 1.8 10^3/ul (0-0.8); ABS Neutrophils 12.5 10^3/ul (1.5-7.7); Eosinophil % 0.4 %; Lymphocyte % 10.8 %
[2019-11-28 04:47] LABS: HCG Pregnancy < 0.60 mIU/mL
[2019-11-28] MEDS ORDERED: Iohexol 300* (CONTRAST) 10 ML SDV IV ONE (04:59)
[2019-11-28] MEDS ORDERED: Piperacillin/Tazobac ADVAN(*) 3.375 GM in NS 0.9% 100 ML* 100 ML IVPB ONE (06:40)
--- NOTE | 2019-11-28 07:13 | ED ---
Progress - Progress Note Progress Note: Patient is a sign-out at 07:00 on 11/28/[address] Kody Gupta MD to Dr. Rosales Dorado MD at shift change, pending surgical consult, further workup, and disposition. At 08:00, Dr. Mao Mcintyre reviewed the patients case and agrees to admit the patient to [facility] with a diagnosis of perineum abscess. Patient will be admitted to [facility] with a diagnosis of perineum abscess. - Consult/PCP Time Called: 08:00 Consult/PCP: Mao Mcintyre MD Re-Evaluation - Re-Evaluation First Eval Re-Evaluation Time: 08:01 Change: Unchanged Comment: At 08:01, patient is pending admission to [facility]. Course/Dx - Course Course Of Treatment: This pt is a 34 Y/O F presenting to [facility] with a CC of a perineum abscess. She states that she was diagnosed on 11/26/19 and was given ABx without relief. She states that her symptoms started on 11/24/19 without any known cause. She states that she has had nausea without vomiting. The abscess has grown in both size and severity per the pt and is currently a 8/10 in severity. Her PE found that her Perineum shows swelling and tenderness perirectal area between the vulva and the rectum on the L side. No pointing here or drainage. Her Pelvic CT found the followin. Large left perianal abscess measuring approximately 2.2 x 1.4 x 3.4 cm[address] 2[address] negative [address] pelvis. She was given the following medications during her ED course: Morphine , Zofran, Zofran. She has abnormalities in WBCs, absolute monos, and absolute neuts. [address] Mcintyre, surgery, recomended the pt be put of zosyn. He states that he will visit the pt in the ED for a consult. She will be a sign out to Dr. Dorado from Dr. Gupta at shift change 0700 11/28/19 pending a consult and disposition. Her Dx is a perineal abscess. - Diagnoses Provider Diagnoses: Abscess of perineum - Provider Notifications Discussed Care Of Patient With: Mao Mcintyre - At 08:00, Dr. Mao Mcintyre reviewed the patients case and agrees to admit the patient to [facility] with a diagnosis of perineum abscess. Time Discussed With Above Provider: 08:00 Instructed by Provider To: Admit As Inpatient Discharge ED - Sign-Out/Discharge Documenting (check all that apply): Patient Departure - Admit, Receiving Sign- Out Receiving patient FROM: Kody Gupta - Patient is a sign-out at 07:00 on 11/[address] Kody Gupta MD to Dr. Rosales Dorado MD at shift change, pending surgical consult, further workup, and disposition. - Discharge Plan Condition: Stable Disposition: ADMITTED TO [facility] - Billing Disposition and Condition Condition: STABLE Disposition: Admitted to [facility] - Attestation Statements Document Initiated by Palmaiblouise: Yes Documenting Scribe: Leslie Chi Provider For Whom Christen is Documenting (Include Credential): Rosales Dorado MD Scribe Attestation: Leslie Oliver, scribed for Rosales Dorado MD on 11/28/19 at 1648. Scribe Documentation Reviewed: Yes Provider Attestation: The documentation as recorded by the Leslie forde accurately reflects the service I personally performed and the decisions made by Rosales resendez MD Status of Scribe Document: Viewed
[2019-11-28] MEDS ORDERED: Naloxone* 0.4 MG/ML 1 ML VIAL IV PRN ×2 (08:08→11:48)
[2019-11-28] MEDS ORDERED: DiMENhydriNATE IV* 50 MG/ML VIAL IV PUSH PRN ×2 (08:08→11:46)
[2019-11-28] MEDS ORDERED: Buffered Lidocaine 1% SYRIN* 1 ML/SYRINGE INTRADERM ONE (08:08)
[2019-11-28] MEDS ORDERED: oxyCODONE TAB* 5 MG TAB PO PRN (08:08)
--- NOTE | 2019-11-28 08:52 | PN ---
Progress Note - Progress Note Date of Service: 11/28/19 SOAP: Subjective: Full H and P dictated 4-5 days of perianal pain mainly on the left She was started on oral antibiotics several days ago with no improvement No fever but had chills Has Crohns disease, on Inflecta q 8 weeks, last dose 11/05 CT reviewed PMX: Crohns, depression PSH:None ALL: Bactrim Meds: see list Social: Etoh and tobacco positive Objective: Temp Pulse Resp BP Pulse Ox 98.3 F 67 20 139/95 95 11/28/19 03:39 11/28/19 07:00 11/28/19 06:53 11/28/19 03:39 11/28/19 06:00 PEX: Lungs: Clear Cor: RRR Abd is soft and non-tender [place]-anal: Tenderness and mild erythema left lateral area with fullness Labs noted HCG neg Assessment: [place]otah-anal/dakotah-rectal abscess Crohns disease Depression Plan: I and D of dakotah-rectal abscess today. Procedure discussed with patient, risks and benefits all discussed Admission after OR for IV abx and wound care
[2019-11-28] MEDS ORDERED: Lactated Ringers 1000 ML Bag* 1,000 ML IV SCH ×2 (09:00→10:00)
[2019-11-28] MEDS ORDERED: Midazolam* 1 MG/ML 2 ML VIAL (2 MG) ONE (09:03)
[2019-11-28] MEDS ORDERED: KETAMINE HCL* 50 MG/ML 10 ML VIAL ONE (09:07)
[2019-11-28] MEDS ORDERED: Propofol* 500 MG/50 ML BTL ONE (09:07)
[2019-11-28] MEDS ORDERED: Lidocaine 1% INJ* 10 MG/ML 30 ML SDV ONE (10:01)
[2019-11-28] MEDS ORDERED: Bacitracin OINTMENT* 0.5% 0.5 oz TUBE ONE (10:02)
[2019-11-28] MEDS ORDERED: Bupivacaine 0.25% EPI 200,000* 30 ML SDV ONE (10:02)
[2019-11-28] MEDS ORDERED: Lidocaine 2% JELLY* 6 ML JELLY TOPICAL ONE (10:02)
[2019-11-28] MEDS ORDERED: fentaNYL* 50 MCG/ML 2 ML VIAL (100 MCG VIAL) ONE ×2 (10:10→11:34)
[2019-11-28] MEDS ORDERED: Midazolam* 1 MG/ML 5 ML VIAL (5 MG) ONE (10:44)
[2019-11-28] MEDS ORDERED: Propofol* 10 MG/ML 20 ML BTL ONE (10:46)
--- NOTE | 2019-11-28 11:18 | HP ---
CC: [facility]; Amanda Heaton MD; Vivi Jones NP HISTORY AND PHYSICAL: DATE OF ADMISSION: 11/28/19 REASON FOR ADMISSION: Left perianal abscess. HISTORY OF PRESENT ILLNESS: Ms. Roberta Aaron is a 34-year-old woman who was diagnosed with Crohn's disease several years ago, who presently takes Inflectra intravenously every 8 weeks, who on developed some perianal discomfort mainly in the left side. She was seen by her primary care provider 2 days ago and started on oral antibiotics, but had progressive worsening and discomfort. She has had some chills, but no fevers. She presented to the emergency room early this morning. She was noted to be afebrile with stable vital signs. Laboratory workup revealed a white blood cell count of 16,000 with slight left shift. Electrolytes, BUN and creatinine were all within normal limits. Her beta HCG was negative. She underwent a CT scan of the abdomen and pelvis. I did review these images. This shows a left perianal/perirectal abscess and no other acute findings. Surgical consultation was obtained. PAST MEDICAL HISTORY: 1. Crohn's disease. 2. Depression. PAST SURGICAL HISTORY: None. MEDICATIONS: Included: 1. Inflectra 100 mg IV q.8 weeks, last regimen was 11/05/19. 2. Bupropion 150 mg daily. 3. Lorazepam 0.5 mg p.o. q.4 hours p.r.n. 4. Erythromycin 250 mg b.i.d., recently started. 5. Bentyl 10 mg 4 times a day p.r.n. 6. Celexa 20 mg daily. ALLERGIES: She is allergic to BACTRIM. FAMILY HISTORY: Her sister also has Crohn's disease, otherwise unremarkable. 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 She smokes tobacco on a regular basis. She drinks alcohol daily. REVIEW OF SYSTEMS: Cerebrovascular: No dizziness or visual disturbance. Cardiovascular: No chest pain or shortness of breath. Pulmonary: No wheezing or hemoptysis. GI: As per above. She has had no blood per rectum. She feels she has been constipated. She never had problems with perianal or perirectal abscesses or fistulas in the past. She has had no history of anal fissures. : No urgency or hematuria. PHYSICAL EXAMINATION GENERAL: Well-developed, very slender female, appears to be in no apparent distress. She is quite alert, conversant and very pleasant. VITAL SIGNS: She is afebrile, pulse rate 67, blood pressure 139/95. LUNGS: Clear to auscultation with normal respiratory effort. HEART: Regular rate and rhythm without murmurs, rubs or gallops. ABDOMEN: Soft and nondistended. She has no tenderness. No rebound, guarding or prior surgical incisions. In the right lateral decubitus position perianal area, there is a fullness with some mild erythema and tenderness to the left at the anal verge with exquisite tenderness. Vulva and labia shows no swelling. There is no skin discoloration. There is no crepitance. There is no tenderness along the right lateral perianal verge or posteriorly. I did review the CT scan. IMPRESSION: Left perianal/perirectal abscess in a woman with Crohn's disease, on a biologic immunosuppressive. Her symptoms of Crohn's seemed to be quite well controlled and treated and this is her first perianal abscess. PLAN: 1. I recommended we proceed to operating room today for incision and drainage of this rather large perianal abscess. I think she will require anesthesia and would be the most efficacious way to adequately drain the abscess. I discussed this with her and her mother today. 2. She will be planned for admission postoperatively for IV antibiotics for at least 24 hours. 3. May require packing changes and drain management. 4. She has been kept n.p.o., and is on IV fluids. Incision and drainage of perirectal abscess. The procedure was discussed with the patient and the risks of, but not limited to, bleeding, infection, further surgical intervention depending on clinical course, sphincter muscle injury recurring in the incontinence which may be temporary or permanent, discomfort, prolonged healing, the formation of fistulas in the future, especially she with history of Crohn's disease were all explained. I also discussed her care today with Dr. Heaton to inform her of our plan and she agrees with this surgical plan. [id number]/[facility] #: [id number] MTDD
[2019-11-28] MEDS ORDERED: HYDROmorphone INJ1* 1 MG/ML SYRINGE IV SLOW PU PRN ×2 (11:23→11:46)
[2019-11-28] MEDS ORDERED: Acetaminophen TAB* 325 MG PO PRN ×2 (11:23→11:46)
[2019-11-28] MEDS ORDERED: Ondansetron INJ* 2 MG/ML VIAL IV PRN ×2 (11:23→11:46)
[2019-11-28] MEDS ORDERED: oxyCODONE/Acetamin 5/325 MG* TAB PO PRN (11:23)
--- NOTE | 2019-11-28 11:23 | OP ---
Operative Report - Blank - Operative Report Date of Operation: 11/28/19 Note: OPERATIVE REPORT Pre-op: Aditi-rectal abscess Post-Op: Left aditi-rectal abscess Procedure:Incision and drainage of left aditi-rectal abscess Surgeon: MD Miguelina Asst: none Anes: Local with Dr. Brenton WHITING IVF:min EBL:min Specimen: none Drain: 1/4 inch ernestina drain Wound: 4 Findings: As above To PACU
[2019-11-28] MEDS ORDERED: NS 0.9% 1000 ML** 1,000 ML IV SCH (11:30)
[2019-11-28] MEDS ORDERED: Ketorolac INJ* 30 MG/ML 1 ML VIAL ONE (11:30)
[2019-11-28] MEDS: Ketorolac INJ* 30 MG/ML 1 ML VIAL IV SCH ×3 (11:31→23:44)
[2019-11-28] MEDS ORDERED: oxyCODONE TAB* 5 MG TAB ONE (11:35)
[2019-11-28] MEDS: fentaNYL* 50 MCG/ML 2 ML VIAL (100 MCG VIAL) IV PRN ×4 (11:36→12:04)
[2019-11-28] MEDS ORDERED: Piperacillin/Tazobactam VIAL*) 3.375 GM in NS 0.9% 100 ML* 100 ML IVPB SCH (12:00)
[2019-11-28] MEDS: NS 0.9% 1000 ML** 1,000 ML IV SCH (12:46)
[2019-11-28] MEDS: Piperacillin/Tazobactam VIAL*) 3.375 GM in NS 0.9% 100 ML* 100 ML IVPB SCH ×2 (13:57→20:56)
[2019-11-28] MEDS: oxyCODONE/Acetamin 5/325 MG* TAB PO PRN ×2 (15:28→19:27)
--- NOTE | 2019-11-28 15:39 | OP ---
CC: [facility]; Vivi Jones NP, [facility] OPERATIVE REPORT: DATE OF OPERATION: 11/28/19 DATE OF : 87 SURGEON: Mao Mcintyre MD COMMUNITY DEVELOPMENT OFFICER: None. ANESTHESIOLOGIST: Dr. Farris. ANESTHESIA: Local with monitored anesthesia care. PRE-OP DIAGNOSIS: Perirectal abscess. POST-OP DIAGNOSIS: Left perirectal abscess. OPERATIVE PROCEDURE: Incision and drainage of left perirectal abscess. ESTIMATED BLOOD LOSS: Minimal. IV FLUIDS: Minimal. SPECIMENS: None. DRAINS: One quarter-inch Ab drain. WOUND CLASSIFICATION: 4. FINDINGS: Large left perirectal abscess. No evidence of fistula. BRIEF HISTORY: Ms. Roberta Aaron is a 34-year-old woman with Crohn disease, on biologic immunosuppr essives, who has had 4 to 5 days of severe left perianal discomfort. She was seen and started on ora l antibiotics by her primary provider, but the symptoms have worsened and then she presented to the e mergency room. CT showed a rather large perirectal abscess and she is now to undergo an incision and drainage. DESCRIPTION OF PROCEDURE: Written informed consent was obtained, preoperative antibiotics were admin istered, and the patient was taken to the operating room, placed in the prone jackknife position. Se dation was administered. SCDs and warming blanket were applied. The perineum and buttocks were prepped and draped in usual sterile fashion. Time-out verification was completed. 0.25% Marcaine mixed with 1% lidocaine was infiltrated over the area of maximum fullness and tenderne ss mainly in the left lateral and anterior anal verge. Anal retractors were used. There was no evidence of abscess drainage through the anal canal and I no alessandra no obvious fistulous openings. A transverse incision was made at approximately the 7 o'clock position. A large abscess cavity was e ntered and a large amount of creamy foul-smelling pus was drained. I opened the incision up slightly and digitally opened up any loculations. The abscess cavity was irrigated with saline and hemostasi s was assured. Due to its size, I did pack this with one quarter-inch Nu Gauze and a small one quarter-inch Ab drain was placed into the cavity and sutured to the skin loosely with a 3-0 Prolene suture. Dry ster ile dressings were applied. The patient tolerated the procedure well and was taken to the recovery r o in stable condition. [id number]/[facility] #: [id number]
[2019-11-28] MEDS ORDERED: Dicyclomine CAP* 10 MG PO PRN (16:05)
[2019-11-28] MEDS ORDERED: LORazepam TAB(*) 0.5 MG PO PRN (16:05)
[2019-11-29] MEDS: NS 0.9% 1000 ML** 1,000 ML IV SCH (01:02)
[2019-11-29] MEDS: Piperacillin/Tazobactam VIAL*) 3.375 GM in NS 0.9% 100 ML* 100 ML IVPB SCH (05:12)
[2019-11-29] MEDS: Ketorolac INJ* 30 MG/ML 1 ML VIAL IV SCH (05:48)
[2019-11-29] MEDS: oxyCODONE/Acetamin 5/325 MG* TAB PO PRN (07:26)
--- NOTE | 2019-11-29 08:16 | PN ---
Progress Note - Progress Note Date of Service: 11/29/19 SOAP: Subjective: NAD comfortable in bed, reports feeling better than yesterday [] Objective: Vital Signs Temp 98.8 F 11/29/19 07:18 Pulse 50 11/29/19 07:18 Resp 18 11/29/19 07:26 BP 120/62 11/29/19 07:18 Pulse Ox 100 11/29/19 07:18 Intake & Output 11/28/19 11/29/19 11/29/19 18:59 06:59 18:59 Intake Total 1310 1300 Output Total 1000 750 Balance 310 550 Weight 115 lb Intake: IV Fluids 1000 960 LR 900 NS (0.9%) 960 IVPB 110 100 ABX - ZOSYN 110 100 Oral 200 240 Output: Urine 1000 750 Pulse 64 O2 Sat 97 Gen: NAD Chest: CTA CVS: RRR Incision: [place] drain in place, no gross purulence, minimal incisional tenderness Ext: calves soft, non tender [] Assessment: 34 yo female POD 1 S/P I&D of perirectal abscess, placement of ernestina drain [] Plan: Packing change, Sitz Baths, cover dressing change PRN, Incentive Spirometry, encouraged deep breathing, OOB Ambulate. []
[2019-11-29] MEDS ORDERED: Citalopram TAB* 20 MG PO SCH (09:00)
[2019-11-29] MEDS ORDERED: BuPROPion XL* 150 MG TAB.XL PO SCH (09:00)
--- NOTE | 2019-11-29 09:45 | DS ---
Discharge Summary Surgeon: Miguelina GODINEZ Admit Date: 11/28/19 Discharge Date: 11/29/19 Admission DX: Perirectal Abscess Discharge DX: Perirectal Abscess Condition at Discharge: Stable Date of D/C PEX: Chest:CTA CVS:RRR Incision: ernestina in place, no gross purulence EXT:calves soft non tender Procedures Performed:Patient was taken to the OR on 11/28/19 for I&D of perirectal abscess with placement of wound packing. & Hospital Course tolerated well then transferred to [facility] for post op care. On post op day 1 the packing placed in the OR was changed a bedside, patient was converted to PO ABX, discharged home. Discharge instructions were given to the patient regarding Diet, Medications, Activity, and post operative Follow up. All Questions were answered. Discharged Home in Stable Condition on DATE 11/29/19
[2019-11-29 10:58] VITALS: BP 139/73
== END 2019-11-29 11:00 | disposition home or self-care (01) ==
LOC: ED 03:38 → SSU 11:23
PROVIDERS: ADMIT Surgery; ATTEND Surgery
DX: K61.1 Rectal abscess (principal); F17.210 Nicotine dependence, cigarettes, uncomplicated; F41.9 Anxiety disorder, unspecified; R11.0 Nausea; F32.9 Major depressive disorder, single episode, unspecified; K50.90 Crohn's disease, unspecified, without complications
CPT/HCPCS: 36415; 72193; 80053; 84702; 85025; 96365; 96366; 96375; 96376; 99283; A9270-GY; G0378; J1170; J1885; J2250; J2270; J2405; J2543; J2704; J3010; Q9967